=== PATIENT | female | born 1955 | race Caucasian/White ===

== ENCOUNTER → 2016-09-20 | Outpatient (CLI) | payer BC ==
--- NOTE | 2016-09-21 10:40 | NM ---
EXAMINATION TYPE: NM hepatobiliary w EF DATE OF EXAM: 09/20/2016 COMPARISON: NONE HISTORY: Abdominal pain, R 10.84 TECHNIQUE: After the intravenous administration of 4.5 mCi Tc 99m Mebrofenin hepatobiliary scintigrap hy is performed. Immediate images post injection. FINDINGS: There is satisfactory initial accumulation of tracer by the liver. The gallbladder is visualized wit hin 4 minutes. The small bowel activity is noted within 6 minutes. At one hour 8 ounces of oral ens ure plus is given to mimic CCK and gallbladder ejection fraction is calculated at 87 %. Therefore th ere is no scintigraphic evidence of cystic or common bile duct obstruction to suggest acute cholecyst itis. IMPRESSION: Gallbladder ejection fraction is 87%
== END ==
LOC: RADNMMAIN 14:06
PROVIDERS: ATTEND Surgery
DX: R10.84 Generalized abdominal pain (principal)
CPT/HCPCS: 78226; A9537

== ENCOUNTER → 2016-09-20 | Outpatient (CLI) | payer BC ==
[2016-09-20 13:27] VITALS: BP 154/66; PULSE 59; RESP 16; TEMP 98.2; BMI 34.5
--- NOTE | 2016-09-20 16:33 | P.HPBAR ---
Bariatric H&P - History & Physicial H&P Date: 09/20/16 History & Physicial: Visit/CC: band adj Patient initial contact: Initial weight: 91.257 kg Initial weight in pounds: 201.00 Height: 5 ft 4 in Initial BMI: 34.5 Last weight: 196 Current weight: 91.257 kg Current weight in pounds: 201.00 Current BMI: 34.5 [place] body weight (based on NIH guidelines): 54.431 kg Excess body weight loss: 0.0% The patient is a 61 year-old F who presents for Bariatric Assessment. Patient presents today for lab band follow up. Patient states that she's had some problems with some intermittent abdominal pain. She's not requesting adjustment of her band. She feels her band is in good zone. Past Medical History Additional Past Medical History / Comment(s): uveitis, palpitations History of Any Multi-Drug Resistant Organisms: None Reported Past Surgical History: Adenoidectomy, Bariatric Surgery, Bladder Surgery, Hysterectomy, Orthopedic Surgery Additional Past Surgical History / Comment(s): lap band 2011, bilateral carpal tunnel , right hip replacement Past Anesthesia/Blood Transfusion Reactions: No Reported Reaction Smoking Status: Never smoker Surgical - Exam Vital Signs Temp Pulse Resp BP 98.2 F 59 L 16 154/66 09/20/16 13:22 09/20/16 13:22 09/20/16 13:22 09/20/16 13:22 - General well developed, no distress - Eyes PERRL - ENT normal pinna - Cardiovascular Rhythm: regular - Abdomen Mild right upper quadrant tenderness Abdomen: soft Bariatric Assessment & Plan Plan: Abdominal pain. Patient will undergo HIDA scan testing. We will evaluate gallbladder dysfunction. Patient follow-up in one month for her LAP-BAND. Bariatric Checklist Checklist: Plan: Checklist: EGD: 1. Hiatal hernia: 2. H. Pylori: HgbA1c: Vitamin D: Smoking: Never smoker Primary care physician referral: Psychiatry clearance: Cardiology clearance: Sleep study: Diet journal: VTE risk score: VTE risk level: Rehab needs at discharge:
[2016-09-20 16:53] LABS: CH 29.3; CHCM 34.2; HCT 40.8 % (34.0-46.0); HDW 2.92; MCH 29.5 pg (25.0-35.0); MCHC 34.2 g/dL (31.0-37.0); MCV 86.2 fL (80.0-100.0); Mean Platelet Volume 7.6; RBC 4.74 m/uL (3.80-5.40); RDW 13.7 % (11.5-15.5); WBC 8.6 k/uL (3.8-10.6)
[2016-09-20 17:07] LABS: ALT 55 U/L (9-52); AST 46 U/L (14-36); Alkaline Phosphatase 82 U/L (38-126); Anion Gap 12 mmol/L; Blood Urea Nitrogen 10 mg/dL (7-17); Calcium 9.5 mg/dL (8.4-10.2); Carbon Dioxide 26 mmol/L (22-30); Chloride 104 mmol/L (98-107); Glucose 126 mg/dL (74-99); Magnesium 2.1 mg/dL (1.6-2.3); Non-African American GFR(MDRD) >60 (>60 ml/min/1.73 sqM); Potassium 4.4 mmol/L (3.5-5.1); Sodium 142 mmol/L (137-145); Total Bilirubin 0.7 mg/dL (0.2-1.3)
[2016-09-20 17:57] LABS: Vitamin B12 558 pg/mL (239-931)
== END | disposition home or self-care (01) ==
LOC: BARWHC3 13:05
PROVIDERS: ATTEND Surgery
DX: Z48.815 Encounter for surgical aftercare following surgery on the digestive system (principal); R10.9 Unspecified abdominal pain; E66.01 Morbid (severe) obesity due to excess calories; Z68.34 Body mass index [BMI] 34.0-34.9, adult; Z98.84 Bariatric surgery status; E44.0 Moderate protein-calorie malnutrition; E55.9 Vitamin D deficiency, unspecified
CPT/HCPCS: 80053; 82306; 82525; 82607; 83735; 84255; 84425; 84443; 84590; 85027; 99211

== ENCOUNTER 2016-10-15 08:11 | Day surgery (SDC) | payer BC ==
[2016-10-11 09:04] VITALS: BMI 34.1
[~2016-10-15 08:11] MED LIST: DEXAMETHASONE SOD PHOSPHATE 10 MG/ML 1 ML VIAL IV ONE; HEPARIN SODIUM,PORCINE 5,000 UNIT/ML 1 ML VIAL SQ ONE; LACTATED RINGERS 1,000 ML IV SCH; LIDOCAINE 1% 20 ML VIAL (10MG/ML) FOR IV START INTRADERMA PRN; ONDANSETRON 4 MG/2 ML VIAL IVP ONE; SCOPOLAMINE 1.5MG/72HR PATCH TRANSDERM ONE; ceFAZolin 2 GM in SODIUM CHLORIDE 0.9% 100 ML IVPB ONE
[2016-10-15 09:46] LABS: Glucose,Whole Blood 105 mg/dL (75-99)
--- NOTE | 2016-10-15 09:54 | P.GSHP ---
History of Present Illness H&P Date: 10/15/16 Chief Complaint: Right upper quadrant pain This a 61-year-old female who presents today for laparoscopically stenting. Her recent HIDA scan shows abnormal ejection fraction consistent with chronic cholecystitis. Past Medical History Past Medical History: Sleep Apnea/CPAP/BIPAP Additional Past Medical History / Comment(s): recent tx UTI, abdominal discomfort, Hx uveitis-follows at [facility], palpitations,UTIs,uses cpap,varicose veins,hypoglycemia,arthritis,has elevated liver enzymes-stated related to methotrexate last taken approx 1 mos ago. History of Any Multi-Drug Resistant Organisms: None Reported Past Surgical History: Adenoidectomy, Bariatric Surgery, Bladder Surgery, Hysterectomy, Joint Replacement, Orthopedic Surgery Additional Past Surgical History / Comment(s): lap band 2010-thinks 10ml fluid present, bilateral carpal tunnel , right hip replacement Past Anesthesia/Blood Transfusion Reactions: Previous Problems w/ Anesthesia, Family History of Problems w/ Anesthesia Additional Past Anesthesia/Blood Transfusion Reaction / Comment(s): takes a long time to wake up with anesthesia,mother takes a long time waking up with anesthesia. No problems with prior blood transfusion. Smoking Status: Never smoker - Past Family History Mother Family Medical History: Diabetes Mellitus, Hypertension Additional Family Medical History / Comment(s): heart disease,valve replacement Father Family Medical History: Diabetes Mellitus, Liver Disease Additional Family Medical History / Comment(s): heart disease Medications and Allergies Home Medications Medication Instructions Recorded Confirmed Type Calcium Citrate 2 tab PO DAILY 09/17/16 10/15/16 History DULoxetine HCL [Cymbalta] 30 mg PO QAM 09/17/16 10/15/16 History Metoprolol Succinate [Toprol XL] 25 mg PO HS 09/17/16 10/15/16 History Multivitamin [Multivitamins Adult 1 tab PO DAILY 09/17/16 10/15/16 History Gummies] Timolol [Betimol 0.5% Ophth Soln] 1 drop BOTH EYES QAM 09/17/16 10/15/16 History Nitrofurantoin Monohyd/M-Cryst 100 mg PO BID 10/15/16 10/15/16 History [Macrobid] Allergies Allergy/AdvReac Type Severity Reaction Status Date / Time Penicillins Allergy Rash/Hives Verified 10/15/16 09:09 Sulfa (Sulfonamide Allergy Rash/Hives Verified 10/15/16 09:09 Antibiotics) Surgical - Exam Vital Signs Temp Pulse Resp Pulse Ox 97.6 F 64 16 99 10/15/16 09:08 10/15/16 09:08 10/15/16 09:08 10/15/16 09:08 - General well developed, no distress - Eyes PERRL - ENT normal pinna - Neck no masses - Respiratory normal expansion - Cardiovascular Rhythm: regular - Abdomen Abdomen: soft, non tender Results - Labs Abnormal Lab Results - Last 24 Hours (Table) 10/15/16 Range/Units 09:38 POC Glucose (mg/dL) 105 H (75-99) mg/dL Assessment and Plan Plan: Chronic cholecystitis. We'll perform laparoscopic cholecystectomy.
[2016-10-15] MEDS ORDERED: ePHEDrine SULFATE/0.9% NACL/PF 50 MG/5 ML SYRINGE IV ONE (10:07)
[2016-10-15] MEDS ORDERED: HYDROmorphone (PF) 1 MG/ML ONE (10:07)
[2016-10-15] MEDS ORDERED: MIDAZOLAM 2 MG/2 ML VIAL ONE (10:07)
[2016-10-15] MEDS ORDERED: PROPOFOL 10 MG/ML 20 ML VIAL IV ONE (10:07)
[2016-10-15] MEDS ORDERED: fentaNYL (PF) 50 MCG/ML 2 ML AMP ONE (10:07)
[2016-10-15] MEDS ORDERED: NEOSTIGMINE 1 MG/ML 10 ML VIAL ONE (10:07)
[2016-10-15] MEDS ORDERED: GLYCOPYRROLATE 0.2 MG/ML 2 ML VIAL ONE (10:07)
[2016-10-15] MEDS ORDERED: LIDOCAINE 1% INJ 10MG/ML (20 ML MDV) ONE (10:07)
[2016-10-15] MEDS ORDERED: ePHEDrine 50 MG/ML 1 ML AMP ONE (10:07)
[2016-10-15] MEDS ORDERED: SUCCINYLCHOLINE CHLORIDE 100 MG/5 ML SYR IV ONE (10:07)
[2016-10-15] MEDS ORDERED: ROCURONIUM BROMIDE 10 MG/ML 10 ML VIAL IV ONE (10:07)
[2016-10-15] MEDS ORDERED: LIDOCAINE 2%-EPI 1:100,000 20 ML VIAL SQ ONE (10:25)
[2016-10-15] MEDS ORDERED: BUPIVACAINE (PF) 0.25% 30 ML VIAL SQ ONE (10:25)
--- NOTE | 2016-10-15 11:07 | P.OP ---
Date of Procedure: 10/15/16 Preoperative Diagnosis: Cholecystitis Postoperative Diagnosis: Cholecystitis Procedure(s) Performed: Laparoscopic cholecystectomy Implants: Anesthesia: PETAR Surgeon: Joseph Vital Estimated Blood Loss (ml): 10 Pathology: other (Gallbladder) Condition: stable Disposition: PACU Indications for Procedure: Operative Findings: Description of Procedure: The patient was placed on the operating table. The patient received a general endotracheal tube anesthesia. The patients abdomen was prepped and draped in the usual sterile fashion. Through an infraumbilical stab incision, the fascia of the anterior abdominal wall was grasped with a pair of Kochers and then the Veress needle was placed in the peritoneal cavity. Position of the Veress needle was confirmed with positive drop test. The abdomen was then insufflated. After adequate insufflation, the 10 mm trocar was placed in the peritoneal cavity. Following this the laparoscope was placed in the peritoneal cavity. The patient was placed in the head-up, right side up position and then a 5 mm trocar was placed in the right lateral and right subcostal position under direct visualization. A 8 mm trocar was placed in the epigastric position. The gallbladder was grasped in the fundus and infundibulum. Traction on the gallbladder was placed in the lateral and the cephalad positions. The triangle of Calot was visualized.. The cystic duct was bluntly dissected until the union of the cystic duct and common bile duct was seen. The cystic duct was then divided and sealed with the Harmonic scissors. A PDS Endoloop was then placed throughout the cystic duct stump. The cystic artery divided and sealed with the Harmonic scissors. The gallbladder was then removed from the liver bed using Harmonic scissors. The gallbladder was then extracted through the epigastric port site. Operative field was checked for any bleeding spots and Harmonic scissors was used to coagulate the liver bed. The abdomen was irrigated. The trocars were removed. The skin was closed using interrupted 3-0 Vicryl suture. Dermabond dressing were applied. The patient tolerated the procedure well.
[2016-10-15 11:23] VITALS: TEMP 97.2
[2016-10-15] MEDS: HYDROmorphone 1 MG/ML 1 ML SYRINGE IVP PRN ×2 (11:47→12:04)
[2016-10-15] MEDS ORDERED: KETOROLAC 30 MG/ML 1 ML VIAL IVP ONE (11:52)
[2016-10-15 12:23] VITALS: RESP 16
[2016-10-15 14:25] VITALS: BP 135/60; PULSE 82
[2016-10-15] MEDS ORDERED: LACTATED RINGERS 1,000 ML IV ONE (15:24)
== END 2016-10-15 17:05 | disposition home or self-care (01) ==
LOC: OR 08:11
PROVIDERS: ATTEND Surgery
DX: K81.1 Chronic cholecystitis (principal); Z98.84 Bariatric surgery status; G47.33 Obstructive sleep apnea (adult) (pediatric); Z99.89 Dependence on other enabling machines and devices; H40.9 Unspecified glaucoma; Z79.2 Long term (current) use of antibiotics; Z79.899 Other long term (current) drug therapy; Z09 Encounter for follow-up examination after completed treatment for conditions other than malignant neoplasm; Z88.0 Allergy status to penicillin; Z88.2 Allergy status to sulfonamides
CPT/HCPCS: 88304; 47562; J2250; J1644; J1100; J2710; J0690; J2405; J2001; J3010; J1885; J1170; J0330; J2704

== ENCOUNTER 2016-10-24 05:53 | Inpatient (IN) | payer BC ==
[2016-10-24] MEDS ORDERED: SODIUM CHLORIDE 0.9% 1,000 ML IV STA (06:14)
[2016-10-24] MEDS ORDERED: ONDANSETRON 4 MG/2 ML VIAL IVP PRN (06:32)
[2016-10-24] MEDS ORDERED: NALOXONE 0.4 MG/ML 1 ML VIAL IV PRN ×2 (06:32→13:56)
--- NOTE | 2016-10-24 06:38 | ED ---
Abdominal Pain HPI - General Chief Complaint: Abdominal Pain Stated Complaint: Post Op Complication Time Seen by Provider: 10/24/16 05:58 Source: patient, EMS Mode of arrival: EMS Limitations: no limitations - History of Present Illness Initial Comments: This patient is a 61-year-old woman who is transferred here from [facility]. She had gone there tonight to be evaluated for abdominal pain. The patient had laparoscopic cholecystectomy performed here 10/15/2016, Dr. Vital, for chronic cholecystitis. The patient states that she has had some mild to moderate abdominal pain since the surgery but that this worsened over the course of the last evening, becoming severe. She indicates all across the upper part of the abdomen. She describes the pain as constant, a bloating sensation, and states that it was severe but is somewhat milder after she received analgesic medicine at the other hospital. The patient also had a computed tomography scan there that did show some intra-abdominal fluid with a consideration of nonspecific ascites or possible bile leak, though most of the fluid is not in the gallbladder fossa. The patient was transferred here. In addition the patient has not had much of a bowel movement since she left the hospital. She denies any change in urination. MD Complaint: abdominal pain -: days(s) Location: LUQ, RUQ, epigastric Radiation: none Migration to: no migration Severity: severe Quality: cramping, fullness Consistency: constant Improves With: nothing Worsens With: nothing Associated Symptoms: nausea, constipation - Related Data Home Medications Medication Instructions Recorded Confirmed Calcium Citrate 2 tab PO DAILY 09/17/16 10/24/16 DULoxetine HCL [Cymbalta] 30 mg PO QAM 09/17/16 10/24/16 Metoprolol Succinate [Toprol XL] 25 mg PO HS 09/17/16 10/24/16 Multivitamin [Multivitamins Adult 1 tab PO DAILY 09/17/16 10/24/16 Gummies] Timolol [Betimol 0.5% Ophth Soln] 1 drop BOTH EYES [facility] 09/17/16 10/24/16 Nitrofurantoin Monohyd/M-Cryst 100 mg PO BID 10/15/16 10/24/16 [Macrobid] Previous Rx's Medication Instructions Recorded Docusate [Colace] 100 mg PO BID #20 capsule 10/15/16 HYDROcodone/APAP 7.5-325MG [[place] 1 each PO Q4H PRN #60 tab 10/15/16 7.5] Allergies Allergy/AdvReac Type Severity Reaction Status Date / Time Penicillins Allergy Rash/Hives Verified 10/24/16 06:01 Sulfa (Sulfonamide Allergy Rash/Hives Verified 10/24/16 06:01 Antibiotics) Review of Systems ROS Statement: Those systems with pertinent positive or pertinent negative responses have been documented in the HPI. ROS Other: All systems not noted in ROS Statement are negative. Constitutional: Denies: fever, chills Respiratory: Denies: cough, dyspnea Cardiovascular: Denies: chest pain, palpitations, orthopnea, edema, syncope Gastrointestinal: Reports: abdominal pain, nausea, constipation. Denies: vomiting, diarrhea, melena, hematochezia Genitourinary: Denies: dysuria, hematuria Musculoskeletal: Denies: back pain Skin: Denies: rash Neurological: Denies: headache, weakness, numbness Past Medical History Past Medical History: Sleep Apnea/CPAP/BIPAP Additional Past Medical History / Comment(s): recent tx UTI, abdominal discomfort, Hx uveitis-follows at [facility], palpitations,UTIs,uses cpap,varicose veins,hypoglycemia,arthritis,has elevated liver enzymes-stated related to methotrexate last taken approx 1 mos ago. History of Any Multi-Drug Resistant Organisms: None Reported Past Surgical History: Adenoidectomy, Bariatric Surgery, Bladder Surgery, Cholecystectomy, Hysterectomy, Joint Replacement, Orthopedic Surgery Additional Past Surgical History / Comment(s): lap band 2010-thinks 10ml fluid present, bilateral carpal tunnel , right hip replacement Past Anesthesia/Blood Transfusion Reactions: Previous Problems w/ Anesthesia, Family History of Problems w/ Anesthesia Additional Past Anesthesia/Blood Transfusion Reaction / Comment(s): takes a long time to wake up with anesthesia,mother takes a long time waking up with anesthesia. No problems with prior blood transfusion. Past Psychological History: Depression Smoking Status: Never smoker - Past Family History Mother Family Medical History: Diabetes Mellitus, Hypertension Additional Family Medical History / Comment(s): heart disease,valve replacement Father Family Medical History: Diabetes Mellitus, Liver Disease Additional Family Medical History / Comment(s): heart disease General Exam Limitations: no limitations General appearance: alert, in no apparent distress, obese Head exam: Present: atraumatic, normocephalic Eye exam: Present: normal appearance, PERRL, EOMI. Absent: scleral icterus, conjunctival injection ENT exam: Present: mucous membranes dry Neck exam: Present: normal inspection Respiratory exam: Present: normal lung sounds bilaterally. Absent: respiratory distress, wheezes, rales, rhonchi, stridor Cardiovascular Exam: Present: regular rate, normal rhythm, normal heart sounds. Absent: systolic murmur, diastolic murmur, rubs, gallop GI/Abdominal exam: Present: distended, tenderness (There is mild to moderate tenderness across the upper abdomen bilaterally without rebound), guarding, diminished bowel sounds. Absent: rebound, rigid, organomegaly, mass, pulsatile mass Extremities exam: Present: normal inspection, normal capillary refill. Absent: pedal edema, calf tenderness Back exam: Absent: CVA tenderness (R), CVA tenderness (L) Neurological exam: Present: alert Skin exam: Present: warm, dry, intact, normal color. Absent: rash Course Vital Signs 10/24/16 05:55 Temperature 98.4 F Pulse Rate 96 Respiratory 18 Rate Blood Pressure 144/65 O2 Sat by Pulse 96 Oximetry Medical Decision Making - Medical Decision Making This patient is a 61-year-old woman transferred from the other hospital where she had gone for abdominal pain. The accompanying documents were reviewed and I discussed the case with Dr. Vital. He requested the patient be admitted, have a HIDA scan performed stat this morning and he will see the patient shortly. Disposition Clinical Impression: Abdominal pain, Leukocytosis Disposition: ADMITTED IP TO THIS [facility] Condition: Fair Referrals: Nonstaff,Physician [REFERRING] - 1-2 days
[2016-10-24] MEDS ORDERED: SODIUM CHLORIDE 0.9% 1,000 ML IV SCH (06:45)
[2016-10-24] MEDS: HYDROmorphone 1 MG/ML 1 ML SYRINGE IV PRN ×5 (06:52→22:52)
--- NOTE | 2016-10-24 09:38 | NM ---
EXAMINATION TYPE: NM hepatobiliary wo EF DATE OF EXAM: 10/24/2016 COMPARISON: Correlation outside CT same day HISTORY: 61 year-old female abdominal pain and bloating status post cholecystectomy on 10/15/2016. TECHNIQUE: After the intravenous administration of 5.5 mCi Tc 99m Mebrofenin hepatobiliary scintigrap hy is performed. Immediate images post injection. FINDINGS: There is satisfactory uptake of tracer within the liver. Accumulation of activity is noted in the reg ion of the gallbladder fossa at 10 minutes. There is progressive accumulation in the region of the ga llbladder fossa and then activity tracking down the right side of the abdomen and then towards the mi dline likely collecting within the pelvis. Imaging performed for 1 hour. IMPRESSION: Exam positive for bile leak at the level of the gallbladder fossa. Leaking bile tracks down to collec t in the pelvis. Findings discussed with Dr. Vital at the workstation at 9:30 AM.
--- NOTE | 2016-10-24 10:20 | P.GSHP ---
History of Present Illness H&P Date: 10/24/16 Chief Complaint: abdominal pain This is a 61-year-old female who underwent laparoscopic cholecystectomy on October 15. Patient states that she developed abdominal pain several days ago. She thought the pain was postoperative pain. The pain worsened and she presented to [facility] last night. She had a CAT scan performed which shows a large fluid collection in the pelvis. The patient was admitted through the emergency room and I ordered a HIDA scan which shows evidence of a bile leak. - Constitutional Constitutional: Reports as per HPI Past Medical History Past Medical History: Sleep Apnea/CPAP/BIPAP Additional Past Medical History / Comment(s): recent tx UTI, abdominal discomfort, Hx uveitis-follows at [facility], palpitations,UTIs,uses cpap,varicose veins,hypoglycemia,arthritis,has elevated liver enzymes-stated related to methotrexate last taken approx 1 mos ago. History of Any Multi-Drug Resistant Organisms: None Reported Past Surgical History: Adenoidectomy, Bariatric Surgery, Bladder Surgery, Cholecystectomy, Hysterectomy, Joint Replacement, Orthopedic Surgery Additional Past Surgical History / Comment(s): lap band 2010-thinks 10ml fluid present, bilateral carpal tunnel , right hip replacement Past Anesthesia/Blood Transfusion Reactions: Previous Problems w/ Anesthesia, Family History of Problems w/ Anesthesia Additional Past Anesthesia/Blood Transfusion Reaction / Comment(s): takes a long time to wake up with anesthesia,mother takes a long time waking up with anesthesia. No problems with prior blood transfusion. Past Psychological History: Depression Smoking Status: Never smoker - Past Family History Mother Family Medical History: Diabetes Mellitus, Hypertension Additional Family Medical History / Comment(s): heart disease,valve replacement Father Family Medical History: Diabetes Mellitus, Liver Disease Additional Family Medical History / Comment(s): heart disease Medications and Allergies Home Medications Medication Instructions Recorded Confirmed Type Calcium Citrate 2 tab PO DAILY 09/17/16 10/24/16 History DULoxetine HCL [Cymbalta] 30 mg PO DAILY 09/17/16 10/24/16 History Metoprolol Succinate [Toprol XL] 25 mg PO HS 09/17/16 10/24/16 History Multivitamin [Multivitamins Adult 1 tab PO DAILY 09/17/16 10/24/16 History Gummies] Timolol [Betimol 0.5% Ophth Soln] 1 drop BOTH EYES QAM 09/17/16 10/24/16 History Acetaminophen [Tylenol] 650 mg PO Q8H PRN 10/24/16 10/24/16 History HYDROcodone/APAP 7.5-325MG [[place] 1 tab PO Q4H PRN 10/24/16 10/24/16 History 7.5] Allergies Allergy/AdvReac Type Severity Reaction Status Date / Time Penicillins Allergy Rash/Hives Verified 10/24/16 07:44 Sulfa (Sulfonamide Allergy Rash/Hives Verified 10/24/16 07:44 Antibiotics) Surgical - Exam Vital Signs Temp Pulse Resp BP Pulse Ox 98.4 F 96 18 144/65 96 10/24/16 05:55 10/24/16 05:55 10/24/16 05:55 10/24/16 05:55 10/24/16 05:55 - General well developed, no distress - Eyes PERRL - ENT normal pinna - Neck no masses - Respiratory normal expansion - Cardiovascular Rhythm: regular - Abdomen Mild diffuse tenderness. There is no rebound or guarding. Sites are clean dry and intact. Abdomen: soft Results - Imaging Additional studies: HIDA scan was reviewed with the radiologist. There is evidence of a bile leak with fluid accumulation in the pelvis. Assessment and Plan Plan: Status post laparoscopic cholecystectomy 9 days ago. The patient has a bile leak. I discussed the patient that we will plan on diagnostic laparoscopy with possible drain placement and evacuation of bile. I discussed with her the potential risk of bile duct injury, cystic duct stump leak as well as ductal Luschka leak or accessory bile duct leak. The patient will undergo diagnostic laparoscopy with drain placement today and washout of bile. GI will be consult for ERCP to evaluate the source of her bile leak as well as possible stent placement.
[2016-10-24 10:22] VITALS: BMI 33.9
[2016-10-24] MEDS: FAMOTIDINE 20 MG/2 ML VIAL IV SCH ×2 (10:42→20:31)
[2016-10-24] MEDS: LACTATED RINGERS 1,000 ML IV SCH ×7 (10:46→16:57)
[2016-10-24] MEDS: LEVOFLOXACIN 750MG-D5W PMX 750 MG in DEXTROSE/WATER 1 150ML.BAG IVPB SCH (10:47)
[2016-10-24 10:58] LABS: Basophils # (A) 0.1 k/uL (0-0.2); Basophils % (A) 1 %; CH 28.2; CHCM 32.2; Eosinophils # (A) 0.5 k/uL (0-0.7); Eosinophils % (A) 3 %; HCT 42.7 % (34.0-46.0); HGB 14.2 gm/dL (11.4-16.0); Luc # (Auto) 0.29; Luc % (Auto) 2; Lymphocytes # (A) 0.7 k/uL (1.0-4.8); Lymphocytes % (A) 4 %; MCH 29.2 pg (25.0-35.0); MCHC 33.2 g/dL (31.0-37.0); Mean Platelet Volume 7.5; Monocytes # (A) 1.7 k/uL (0-1.0); Monocytes % (A) 9 %; Neutrophils # (A) 15.8 k/uL (1.3-7.7); Neutrophils % (A) 82 %; RBC 4.85 m/uL (3.80-5.40); RDW 12.9 % (11.5-15.5); WBC 19.2 k/uL (3.8-10.6); WBC (Perox) 20.15
[2016-10-24 11:14] LABS: ALT 34 U/L (9-52); AST 24 U/L (14-36); Alkaline Phosphatase 107 U/L (38-126); Anion Gap 8 mmol/L; Blood Urea Nitrogen 23 mg/dL (7-17); Calcium 7.6 mg/dL (8.4-10.2); Carbon Dioxide 26 mmol/L (22-30); Chloride 97 mmol/L (98-107); Glucose 109 mg/dL (74-99); Non-African American GFR(MDRD) >60 (>60 ml/min/1.73 sqM); Potassium 4.6 mmol/L (3.5-5.1); Sodium 131 mmol/L (137-145); Total Bilirubin 1.8 mg/dL (0.2-1.3); Total Protein 4.8 g/dL (6.3-8.2)
[2016-10-24] MEDS ORDERED: IV FLUID CONTINUATION 1,000 ML IV ONE (11:33)
[2016-10-24] MEDS ORDERED: MIDAZOLAM 2 MG/2 ML VIAL ONE (12:18)
[2016-10-24] MEDS ORDERED: SUCCINYLCHOLINE CHLORIDE 100 MG/5 ML SYR IV ONE (12:18)
[2016-10-24] MEDS ORDERED: ROCURONIUM BROMIDE 10 MG/ML 10 ML VIAL IV ONE (12:18)
[2016-10-24] MEDS ORDERED: GLYCOPYRROLATE 0.2 MG/ML 2 ML VIAL ONE (12:18)
[2016-10-24] MEDS ORDERED: LIDOCAINE 1% INJ 10MG/ML (20 ML MDV) ONE (12:18)
[2016-10-24] MEDS ORDERED: PROPOFOL 10 MG/ML 20 ML VIAL IV ONE (12:18)
[2016-10-24] MEDS ORDERED: NEOSTIGMINE 1 MG/ML 10 ML VIAL ONE (12:18)
[2016-10-24] MEDS ORDERED: fentaNYL (PF) 50 MCG/ML 2 ML AMP ONE (12:18)
[2016-10-24] MEDS ORDERED: BUPIVACAIN-EPI 0.5%-1:200,000 30 ML VIAL SQ ONE (12:36)
[2016-10-24] MEDS ORDERED: LACTATED RINGERS 1,000 ML IV ONE ×3 (13:07→14:47)
--- NOTE | 2016-10-24 14:05 | P.OP ---
Date of Procedure: 10/24/16 Preoperative Diagnosis: Biloma Postoperative Diagnosis: Biloma Procedure(s) Performed: Diagnostic laparoscopy Exploratory laparotomy Evacuation of biloma with drain placement Implants: Anesthesia: PETAR Surgeon: Joseph Vital Estimated Blood Loss (ml): 50 Pathology: none sent Condition: stable Disposition: PACU Indications for Procedure: Operative Findings: Description of Procedure: The patient's placed on the operating table in the supine position. She received general anesthesia. Her abdomen was prepped and draped usual sterile fashion. The patient a previous trocar site in the left upper quadrant. The skin was incised at the incision site and then using a optical trocar under direct visualization the peritoneal cavity was entered. There appeared to be adhered peritoneal fat at the trocar site there is no good visualization. At this point a skin incision was made at the umbilicus and then using another optical trocar under direct visitation the peritoneal cavity was entered. Once again there was omental fat stuck to the abdominal wall which prevented visualization panel cavity. At this point incision was made at the midline. Local area and then the pleural cavity is entered under direct visualization. There was a large amount of bilious fluid in the pleural cavity. This was aspirated. The incision was extended cephalad. In the lateral trocar was visualized. The lateral trocar was To the transverse colon in some peritoneal fat. There is no evidence of any injury to the colon. There appeared to be a small serosal tear and this was secured with 3-0 GI silk suture. At the area umbilicus there was no evidence of any injury to the small bowel. There was a large amount of bilious fluid. This was aspirated there was over 2200 mL of bilious fluid aspirated. At this point the liver bed was examined. There was significant inflammatory changes around the liver bed there was no obvious bile leak seen. The PDS Endoloop was seen on the cystic duct stump. No leak was visualized. At this point the abdomen was further irrigated. 6 L of normal saline were used to irrigate the abdomen. A DAI drain was placed into the gallbladder fossa and brought out through the right upper quadrant. Another DAI drain was placed in the pelvis and brought out through the left lower abdominal wall. Once again the bowel was examined and there is no evidence of any injury to the bowel. The fascia was closed with looped #1 PDS suture. The skin was closed mary anne. The patient was sent to recovery room in stable condition.
[2016-10-24] MEDS: HYDROmorphone 1 MG/ML 1 ML SYRINGE IVP ONE ×6 (14:17→15:04)
[2016-10-24] MEDS ORDERED: ONDANSETRON 4 MG/2 ML VIAL IVP ONE (14:27)
[2016-10-24] MEDS: metroNIDAZOLE-NS PMX 500 MG in SALINE 1 100ML.BAG IVPB SCH ×2 (15:45→23:37)
[2016-10-24] MEDS: LACTATED RINGERS 1,000 ML IV ONE ×2 (15:47→18:03)
--- NOTE | 2016-10-24 16:08 | P.CONS ---
History of Present Illness - Reason for Consult sepsis, leukocytosis - History of Present Illness 61-year-old female admitted post expiratory laparotomy. Patient at week ago had a cholecystectomy. Patient's the had continued abdominal pain because of which she came back to the hospital. Patient underwent x-ray laparotomy and 2.2 L of bilious fluid was removed and patient probably has sepsis from that. Patient does have leukocytosis. Patient is ALLERGIC to penicillin and patient is presently on 1 25 mL of lactated Ringer's along with metronidazole and levofloxacin which are appropriate antibiotics for intra-abdominal sepsis. Patient is still having a lot of anesthesia denied any symptoms at this point of time although patient is still under influence of anesthesia Review of Systems REVIEW OF SYSTEMS: CONSTITUTIONAL: No fever, no malaise, no fatigue. HEENT: No recent visual problems or hearing problems. Denied any sore throat. CARDIOVASCULAR: No chest pain, orthopnea, PND, no palpitations, no syncope. PULMONARY: No shortness of breath, no cough, no hemoptysis. GASTROINTESTINAL: Abdominal pain NEUROLOGICAL: No headaches, no weakness, no numbness. HEMATOLOGICAL: Denies any bleeding or petechiae. GENITOURINARY: Denies any burning micturition, frequency, or urgency. MUSCULOSKELETAL/RHEUMATOLOGICAL: Denies any joint pain, swelling, or any muscle pain. ENDOCRINE: Denies any polyuria or polydipsia. The rest of the 14-point review of systems is negative. Past Medical History Past Medical History: Sleep Apnea/CPAP/BIPAP Additional Past Medical History / Comment(s): recent tx UTI, abdominal discomfort, Hx uveitis-follows at [facility], palpitations,UTIs,uses cpap,varicose veins,hypoglycemia,arthritis,has elevated liver enzymes-stated related to methotrexate last taken approx 1 mos ago. History of Any Multi-Drug Resistant Organisms: None Reported Past Surgical History: Adenoidectomy, Bariatric Surgery, Bladder Surgery, Cholecystectomy, Hysterectomy, Joint Replacement, Orthopedic Surgery Additional Past Surgical History / Comment(s): lap band 2010-thinks 10ml fluid present, bilateral carpal tunnel , right hip replacement Past Anesthesia/Blood Transfusion Reactions: Previous Problems w/ Anesthesia, Family History of Problems w/ Anesthesia Additional Past Anesthesia/Blood Transfusion Reaction / Comm: takes a long time to wake up with anesthesia,mother takes a long time waking up with anesthesia. No problems with prior blood transfusion. Past Psychological History: Depression Smoking Status: Never smoker - Past Family History Mother Family Medical History: Diabetes Mellitus, Hypertension Additional Family Medical History / Comment(s): heart disease,valve replacement Father Family Medical History: Diabetes Mellitus, Liver Disease Additional Family Medical History / Comment(s): heart disease Medications and Allergies Home Medications Medication Instructions Recorded Confirmed Type Calcium Citrate 2 tab PO DAILY 09/17/16 10/24/16 History DULoxetine HCL [Cymbalta] 30 mg PO DAILY 09/17/16 10/24/16 History Metoprolol Succinate [Toprol XL] 25 mg PO HS 09/17/16 10/24/16 History Multivitamin [Multivitamins Adult 1 tab PO DAILY 09/17/16 10/24/16 History Gummies] Timolol [Betimol 0.5% Ophth Soln] 1 drop BOTH EYES QAM 09/17/16 10/24/16 History Acetaminophen [Tylenol] 650 mg PO Q8H PRN 10/24/16 10/24/16 History HYDROcodone/APAP 7.5-325MG [[place] 1 tab PO Q4H PRN 10/24/16 10/24/16 History 7.5] Allergies Allergy/AdvReac Type Severity Reaction Status Date / Time Penicillins Allergy Rash/Hives Verified 10/24/16 07:44 Sulfa (Sulfonamide Allergy Rash/Hives Verified 10/24/16 07:44 Antibiotics) Physical Exam Vitals: Vital Signs Temp Pulse Pulse Pulse Resp BP BP 10/24/16 15:00 98 16 139/55 10/24/16 14:45 93 16 138/65 10/24/16 14:30 91 16 138/63 10/24/16 14:15 90 16 128/58 10/24/16 14:01 98.0 F 100 16 144/65 10/24/16 07:46 98.9 F 98 20 133/62 10/24/16 07:45 98 F 103 H 16 135/63 10/24/16 06:53 96 20 130/59 10/24/16 05:55 98.4 F 96 18 144/65 Pulse Ox 10/24/16 15:00 99 10/24/16 14:45 100 10/24/16 14:30 100 10/24/16 14:15 100 10/24/16 14:01 100 10/24/16 07:46 92 L 08/13/17 07:45 94 L 10/24/16 06:53 95 10/24/16 05:55 96 Intake and Output 10/24/16 10/24/16 10/24/16 06:59 14:59 22:59 Intake Total 1550 50 Output Total 110 Balance 1440 50 Intake: IV 1550 50 Output: Estimated Blood Loss 110 Other: Voiding Method Toilet Weight 90.265 kg 89.584 kg Patient Weight 10/25/16 06:59 Weight 89.584 kg PHYSICAL EXAMINATION: GENERAL: The patient is alert and oriented x3, not in any acute distress. Well developed, well nourished. HEENT: Pupils are round and equally reacting to light. EOMI. No scleral icterus. No conjunctival pallor. Normocephalic, atraumatic. No pharyngeal erythema. No thyromegaly. CARDIOVASCULAR: S1 and S2 present. No murmurs, rubs, or gallops. PULMONARY: Chest is clear to auscultation, no wheezing or crackles. ABDOMEN: Patient has a biliary drain, abdomen is will be distended, sluggish bowel sounds. MUSCULOSKELETAL: No joint swelling or deformity. EXTREMITIES: No cyanosis, clubbing, or pedal edema. NEUROLOGICAL: Gross neurological examination did not reveal any focal deficits. SKIN: No rashes. Results CBC & Chem 7: 10/24/16 10:23 10/24/16 10:23 Labs: Abnormal Lab Results - Last 24 Hours (Table) 10/24/16 10/24/16 Range/Units 10:23 10:23 WBC 19.2 H (3.8-10.6) k/uL Neutrophils # 15.8 H (1.3-7.7) k/uL Lymphocytes # 0.7 L (1.0-4.8) k/uL Monocytes # 1.7 H (0-1.0) k/uL Sodium 131 L (137-145) mmol/L Chloride 97 L (98-107) mmol/L BUN 23 H (7-17) mg/dL Glucose 109 H (74-99) mg/dL Calcium 7.6 L (8.4-10.2) mg/dL Total Bilirubin 1.8 H (0.2-1.3) mg/dL Total Protein 4.8 L (6.3-8.2) g/dL Albumin 2.4 L (3.5-5.0) g/dL Assessment and Plan Plan: 1 sepsis: Secondary to biliary leak patient is on appropriate antibiotics metronidazole and boxes seen. Patient is ALLERGIC to penicillins. Patient is on IV fluids at 1 25 mL per hour. #2 hyponatremia: Hypervolemic hyponatremia expected to improve with IV fluids. 3 sleep apnea patient does use CPAP machine at home which will be continued. #4 status post laparotomy: Pain management and DVT prophylaxis per primary service
[2016-10-24] MEDS: METOPROLOL SUCCINATE (ER) 25 MG TAB.ER.24H PO SCH (20:31)
[2016-10-24] MEDS: DOCUSATE 100 MG CAP PO SCH (23:00)
[2016-10-25] MEDS: HYDROmorphone 1 MG/ML 1 ML SYRINGE IV PRN ×7 (01:01→23:23)
[2016-10-25] MEDS: metroNIDAZOLE-NS PMX 500 MG in SALINE 1 100ML.BAG IVPB SCH ×3 (08:03→23:20)
[2016-10-25] MEDS: DOCUSATE 100 MG CAP PO SCH ×2 (08:05→20:19)
[2016-10-25] MEDS: ENOXAPARIN 40 MG/0.4 ML SYRINGE SQ SCH (08:06)
[2016-10-25] MEDS: DULoxetine HCL 30 MG CAPSULE.DR PO SCH (08:06)
[2016-10-25] MEDS: FAMOTIDINE 20 MG/2 ML VIAL IV SCH ×2 (08:07→20:19)
[2016-10-25 08:08] LABS: Basophils # (A) 0.1 k/uL (0-0.2); Basophils % (A) 1 %; CH 28.8; CHCM 32.1; Eosinophils # (A) 0.1 k/uL (0-0.7); Eosinophils % (A) 1 %; HCT 40.4 % (34.0-46.0); HDW 2.62; HGB 12.5 gm/dL (11.4-16.0); Luc # (Auto) 0.31; Luc % (Auto) 2; Lymphocytes # (A) 0.8 k/uL (1.0-4.8); Lymphocytes % (A) 4 %; MCH 27.9 pg (25.0-35.0); MCHC 30.9 g/dL (31.0-37.0); Monocytes # (A) 2.3 k/uL (0-1.0); Monocytes % (A) 11 %; Neutrophils # (A) 16.8 k/uL (1.3-7.7); Neutrophils % (A) 82 %; RBC 4.48 m/uL (3.80-5.40); RDW 13.4 % (11.5-15.5); WBC 20.5 k/uL (3.8-10.6); WBC (Perox) 19.93
[2016-10-25 08:32] LABS: ALT 38 U/L (9-52); AST 36 U/L (14-36); Alkaline Phosphatase 94 U/L (38-126); Anion Gap 9 mmol/L; Blood Urea Nitrogen 18 mg/dL (7-17); Calcium 7.8 mg/dL (8.4-10.2); Carbon Dioxide 25 mmol/L (22-30); Chloride 101 mmol/L (98-107); Glucose 112 mg/dL (74-99); Non-African American GFR(MDRD) >60 (>60 ml/min/1.73 sqM); Potassium 4.8 mmol/L (3.5-5.1); Sodium 135 mmol/L (137-145); Total Bilirubin 1.4 mg/dL (0.2-1.3); Total Protein 4.1 g/dL (6.3-8.2)
[2016-10-25 09:10] LABS: Manual Review Performed
[2016-10-25] MEDS: LEVOFLOXACIN 750MG-D5W PMX 750 MG in DEXTROSE/WATER 1 150ML.BAG IVPB SCH (10:21)
[2016-10-25] MEDS: TIMOLOL 0.5% OPHTH DROPS 5 ML BTL BOTH EYES SCH (10:21)
[2016-10-25] MEDS ORDERED: INDOMETHACIN 50MG SUPPOSITORY RECTAL ONE (10:59)
[2016-10-25] MEDS: cefTRIAXone 2,000 MG in SODIUM CHLORIDE 0.9% 100 ML IVPB SCH (11:56)
[2016-10-25] MEDS ORDERED: IV FLUID CONTINUATION 250 ML IV ONE (15:09)
[2016-10-25] MEDS ORDERED: PROPOFOL 10 MG/ML 20 ML VIAL IV ONE (15:13)
[2016-10-25] MEDS ORDERED: LIDOCAINE 1% INJ 10MG/ML (20 ML MDV) ONE (15:13)
[2016-10-25] MEDS ORDERED: MIDAZOLAM 2 MG/2 ML VIAL ONE (15:13)
[2016-10-25] MEDS ORDERED: fentaNYL (PF) 50 MCG/ML 2 ML AMP ONE (15:13)
[2016-10-25] MEDS ORDERED: IOHEXOL 300 MG/ML 50 ML BOTTLE MISCELLANE ONE (15:30)
[2016-10-25] MEDS ORDERED: LACTATED RINGERS 1,000 ML IV ONE (15:55)
--- NOTE | 2016-10-25 16:15 | P.PCN ---
Date of Procedure: 10/25/16 Preoperative Diagnosis: Postoperative Diagnosis: Procedure(s) Performed: Procedure: Endoscopic retrograde cholangiography with sphincterotomy for the placement of a biliary stent Preoperative diagnosis: Biliary leak following recent cholecystectomy. Postoperative diagnosis: 1. Biliary leak demonstrated at the cystic duct stump. 2 Sphincterotomy performed as we were unable to advance the biliary stent into the common bile duct until after sphincterotomy. 3. 7-[place] 5 cm [place] biliary stent successfully placed with good position. Preparation and sedation: Was provided by anesthesia. Brief clinical history: The patient is a 61-year-old female admitted post exploratory laparotomy. Patient had laparoscopic cholecystectomy around 8 days ago. She continued to have abdominal pain postoperatively for which she came back to the hospital. Patient underwent exploratory laparotomy and 2.2 L of bilious fluid was removed and J-tube was left in place and we were asked to see her for placement of a biliary stent. The details are summarized in the history and physical and dictated consultations and progress notes. Procedure: With the patient in the prone position and after informed consent and adequate sedation, I passed the Olympus video duodenoscope down the esophagus into the stomach then passed it through the pylorus into the duodenum and brought the papilla into view. Initial cannulation and injection with dye resulted in opacification of the common bile duct and biliary tree. The bile leak at the cystic duct stump was demonstrated. There were no filling defects in the common bile duct. Initially, I attempted to advance a biliary stent into the papillary orifice without sphincterotomy but after 2 attempts I decided to perform a sphincterotomy to enable the advancement of the stent into the distal common bile duct. After successful sphincterotomy I was then able to advance and [place] 7-[place] 5 cm biliary stent into the distal common bile duct and keep it in good position then the endoscope was withdrawn. The patient tolerated the procedure well. Plan: The patient is already on antibiotics which will be continued. Will allow liquid diet and monitor her condition closely. Implants: Indications for Procedure: Operative Findings: Description of Procedure:
--- NOTE | 2016-10-25 16:16 | FL ---
EXAMINATION TYPE: FL ERCP biliary duct only DATE OF EXAM: 10/25/2016 COMPARISON: NONE HISTORY: Stent insertion Fluoroscopy support supplied to the referring clinician. See dictated report from gastroenterology, 1.22 minutes fluoroscopy time supplied, intraoperative C-arm image documents the procedure
--- NOTE | 2016-10-25 18:03 | P.PN ---
Progress Note - Text the patient underwent ERCP with common bile duct stent placement she is found to have a cystic duct stump leak. She states she feels better. On exam her vital signs appear stable. Her abdomen is soft. There is some mild incisional tenderness. There is no significant rebound or guarding. Status post cholecystectomy with biloma secondary to cystic duct stump leak. Patient has had successful placement ERCP placed common bile duct stent. She will have her CBC rechecked tomorrow. She'll continue IV antibiotics.
--- NOTE | 2016-10-25 18:07 | CONS ---
DATE OF CONSULTATION: 10/23/2016 REASON FOR CONSULTATION: Possible biliary leak and peritonitis. HISTORY OF PRESENT ILLNESS: The patient is a 61-year-old female who is status post laparoscopic cholecystectomy done by Dr. Vital 10/15/16 at [facility]. The patient brought back to the ER and ( ) with abdominal pain. The patient said the pain has been there since he had the surgery done. Described to be dull aching pain and all over the abdomen. It was intensity 10 out of 10 with no radiation. No nausea or vomiting and no diarrhea or constipation. With these symptoms, the patient was evaluated at an outside facility where the patient did have CT of the abdomen and pelvis which did show evidence of nonspecific ascites and question biliary leak for which the patient was transferred back to [facility]. The patient did have a HIDA scan done yesterday that was suggestive of a biliary leak. She was subsequently taken back to the OR by Dr. Vital status post laparotomy. She di have 2.2 L of biliary fluid drained. However, no clear focus of the leak was noticed. She was started on Levaquin and Flagyl. Admitted to the hospital and I was asked to see the patient today for further recommendation regarding antibiotic therapy. The patient did undergo ERCP this afternoon. The patient did have low grade fever of 100.3 with white count 19.2. It is up to 20.5 today. REVIEW OF SYSTEMS: Constitutional: Positive for weakness and low grade fever. EYES: No complaint. HEENT: No complaint. Respiratory: No complaint. Cardiovascular: No complaint. : No complaint. Gastrointestinal: As per history of present illness. Musculoskeletal: No complaint. Integumentary: As per HPI. Psychological: No complaint. Endocrine: No complaint. Neurological: No complaint. Past medical history significant for sleep apnea, urinary tract infection, chronic cholecystitis, uritis. Past surgical history: Adenoidectomy, bariatric surgery, cholecystectomy, hysterectomy. Lap band, right hip replacement and recent laparoscopic cholecystectomy. SOCIAL HISTORY: No history of smoking, drinking or drug use. FAMILY HISTORY: Mother with history of diabetes and hypertension. Father with history of diabetes and heart disease. ALLERGIES: PENICILLIN, HOWEVER TOLERATED KEFLEX. ( ) SULFA. Medications include the patient is currently on: 1. [place]. 2. Colace. 3. Cymbalta. 4. Lovenox. 5. Pepcid. 6. Dilaudid. 7. Reglan. 8. Toprol XL. 9. Flagyl. 10. Narcan. On examination, blood pressure is 131/58 with a pulse of 88. Temperature 98.4. T-Max is 100.6. She is 95% on room air. General description is a middle age female lying in bed, in no distress. No tachypnea or accessory muscles of respiration use. HEENT: Examination shows no pallor and no sclera icterus. Oral mucosa membranes dry. NECK: Trachea is central. No thyromegaly. LUNGS: Unlabored breathing. Clear to auscultation anteriorly. HEART: S1, S2 regular rate and rhythm. ABDOMEN: Soft. Mild tenderness. Minimal tender to touch. No guarding and no rigidity. EXTREMITIES: No edema of the feet. SKIN: No rash or mass palpable. NEUROLOGICALLY: The patient is awake, alert and oriented times three. Mood and affect normal. LABS: Hemoglobin 12.5, white count 20.5, BUN 18, creatinine 0.76. Electrolytes have been normal. Bilirubin 1.4. ALT/AST are normal. No cultures have been done. DIAGNOSTIC IMPRESSION AND PLAN: 1. The patient admitted to the hospital with abdominal pain. Did have low grade fever with elevated white count with likely component of a biliary peritonitis. Underlying infection less likely but cannot be entirely excluded though likely ( ) gram negative. Mostly aerobes and less like anaerobes. 2. The patient does have MULTIPLE ANTIBIOTIC ALLERGIES that does limit the number of antibiotics that can be safely used. ALLERGY to PENICILLIN WITH RASH AND HAS TOLERATED KEFLEX . PLAN: 1. Discontinue Levaquin. 2. We will start the patient on ( ) continue Flagyl. 3. Blood cultures times two before giving the Rocephin. 4. Follow-up on the clinical condition and cultures to further adjust medication if needed. Family present at the bedside. All their questions and concerns were answered. YANNA
[2016-10-25] MEDS: METOPROLOL SUCCINATE (ER) 25 MG TAB.ER.24H PO SCH (20:18)
--- NOTE | 2016-10-26 00:11 | P.PN ---
Subjective Principal diagnosis: Abdominal pain with the recent cholecystectomy. Suspected bile leak 61-year-old female admitted post expiratory laparotomy. Patient at week ago had a cholecystectomy. Patient's the had continued abdominal pain because of which she came back to the hospital. Patient underwent x-ray laparotomy and 2.2 L of bilious fluid was removed and patient probably has sepsis from that. Patient does have leukocytosis. Patient is ALLERGIC to penicillin and patient is presently on 1 25 mL of lactated Ringer's along with metronidazole and levofloxacin which are appropriate antibiotics for intra-abdominal sepsis. Patient is still having a lot of anesthesia denied any symptoms at this point of time although patient is still under influence of anesthesia. On 10/25/2016 Patient is still having abdominal distention and bile drain tube is in place. No fever no chills. Patient will be undergoing ERCP today. No fever no chills. Patient is being continued on IV antibiotics. Objective - Vital Signs Vital signs: Vital Signs Temp 97.9 F 10/25/16 16:26 Pulse 78 10/25/16 20:20 Resp 16 10/25/16 15:00 BP 120/58 10/25/16 20:20 Pulse Ox 95 10/25/16 16:59 Intake & Output 10/25/16 10/25/16 10/26/16 06:59 18:59 06:59 Intake Total 1250 400 Output Total 160 215 Balance 1090 185 Weight 89.584 kg Intake: IV 400 Intake, IV Titration 1250 Amount Sodium Chloride 0.9% 1, 1250 000 ml @ 100 mls/hr IV . Q10H STA Rx#:[id number] Output: Drainage 160 215 Bilateral Abdomen 25 Left Lower Abdomen 20 10 Right Upper Abdomen 140 180 Other: Voiding Method Toilet Toilet # Voids 1 1 - Exam GENERAL: The patient is alert and oriented x3, not in any acute distress. Well developed, well nourished. HEENT: Pupils are round and equally reacting to light. EOMI. No scleral icterus. No conjunctival pallor. Normocephalic, atraumatic. No pharyngeal erythema. No thyromegaly. CARDIOVASCULAR: S1 and S2 present. No murmurs, rubs, or gallops. PULMONARY: Chest is clear to auscultation, no wheezing or crackles. ABDOMEN: Patient has a biliary drain, abdomen is distended, sluggish bowel sounds. MUSCULOSKELETAL: No joint swelling or deformity. EXTREMITIES: No cyanosis, clubbing, or pedal edema. NEUROLOGICAL: Gross neurological examination did not reveal any focal deficits. SKIN: No rashes. - Labs CBC & Chem 7: 10/25/16 07:43 10/25/16 07:43 Labs: Abnormal Lab Results - Last 24 Hours (Table) 10/25/16 10/25/16 Range/Units 07:43 07:43 WBC 20.5 H (3.8-10.6) k/uL MCHC 30.9 L (31.0-37.0) g/dL Neutrophils # 16.8 H (1.3-7.7) k/uL Lymphocytes # 0.8 L (1.0-4.8) k/uL Monocytes # 2.3 H (0-1.0) k/uL Sodium 135 L (137-145) mmol/L BUN 18 H (7-17) mg/dL Glucose 112 H (74-99) mg/dL Calcium 7.8 L (8.4-10.2) mg/dL Total Bilirubin 1.4 H (0.2-1.3) mg/dL Total Protein 4.1 L (6.3-8.2) g/dL Albumin 2.0 L (3.5-5.0) g/dL Assessment and Plan Plan: 1 sepsis: Secondary to biliary leak patient is on appropriate antibiotics ceftriaxone and metronidazole. Patient is ALLERGIC to penicillins. Patient is on IV fluids at 1 25 mL per hour. #2 suspected bile leak. GI is planning for ERCP today.. #2 hyponatremia: Hypervolemic hyponatremia expected to improve with IV fluids. 3 sleep apnea patient does use CPAP machine at home which will be continued. #4 status post laparotomy and a recent cholecystectomy.: Pain management and DVT prophylaxis per primary service Time with Patient: Greater than 30
[2016-10-26] MEDS: metroNIDAZOLE-NS PMX 500 MG in SALINE 1 100ML.BAG IVPB SCH ×3 (07:43→23:59)
[2016-10-26] MEDS: HYDROmorphone 1 MG/ML 1 ML SYRINGE IV PRN ×5 (07:44→23:59)
[2016-10-26] MEDS: DOCUSATE 100 MG CAP PO SCH ×2 (07:47→21:14)
[2016-10-26] MEDS: ENOXAPARIN 40 MG/0.4 ML SYRINGE SQ SCH (07:47)
[2016-10-26] MEDS: DULoxetine HCL 30 MG CAPSULE.DR PO SCH (07:47)
[2016-10-26] MEDS: FAMOTIDINE 20 MG/2 ML VIAL IV SCH ×2 (07:48→21:14)
[2016-10-26] MEDS: TIMOLOL 0.5% OPHTH DROPS 5 ML BTL BOTH EYES SCH (07:48)
[2016-10-26 08:52] LABS: Basophils # (A) 0.1 k/uL (0-0.2); Basophils % (A) 1 %; CH 28.7; Eosinophils # (A) 0.6 k/uL (0-0.7); Eosinophils % (A) 4 %; HCT 36.1 % (34.0-46.0); HDW 2.63; HGB 11.3 gm/dL (11.4-16.0); Luc % (Auto) 1; Lymphocytes # (A) 0.6 k/uL (1.0-4.8); Lymphocytes % (A) 4 %; MCH 28.1 pg (25.0-35.0); MCHC 31.3 g/dL (31.0-37.0); Mean Platelet Volume 7.8; Monocytes # (A) 1.1 k/uL (0-1.0); Monocytes % (A) 7 %; Neutrophils # (A) 13.1 k/uL (1.3-7.7); Neutrophils % (A) 83 %; RBC 4.02 m/uL (3.80-5.40); RDW 13.6 % (11.5-15.5); WBC 15.7 k/uL (3.8-10.6); WBC (Perox) 16.33
[2016-10-26 09:12] LABS: Anion Gap 7 mmol/L; Blood Urea Nitrogen 16 mg/dL (7-17); Calcium 7.6 mg/dL (8.4-10.2); Carbon Dioxide 23 mmol/L (22-30); Chloride 104 mmol/L (98-107); Glucose 81 mg/dL (74-99); Non-African American GFR(MDRD) >60 (>60 ml/min/1.73 sqM); Potassium 4.6 mmol/L (3.5-5.1); Sodium 134 mmol/L (137-145)
[2016-10-26] MEDS: cefTRIAXone 2,000 MG in SODIUM CHLORIDE 0.9% 100 ML IVPB SCH (09:16)
--- NOTE | 2016-10-26 09:20 | P.PN ---
Subjective Principal diagnosis: Biliary leak Recent laparoscopic cholecystectomy. Status post diagnostic laparoscopy drainage of biloma followed by ERCP with biliary stent placement yesterday for biliary leak. Feels better. Abdominal pain improved. Afebrile. Tolerating clear liquids. Objective - Vital Signs Vital signs: Vital Signs Temp 97.9 F 10/26/16 07:00 Pulse 77 10/26/16 08:00 Resp 16 10/26/16 08:00 BP 121/56 10/26/16 07:00 Pulse Ox 95 10/26/16 07:00 Intake & Output 10/25/16 10/26/16 10/26/16 18:59 06:59 18:59 Intake Total 400 900 Output Total 215 55 Balance 185 845 Weight 89.584 kg 89.584 kg Intake: IV 400 Intake, IV Titration 900 Amount Lactated Ringers 1,000 ml 800 As IV .[facility]K-[facility] Rx#: [id number] metroNIDAZOLE-NS PMX 500 100 mg In Saline 1 100ml.bag @ 100 mls/hr IVPB Q8HR COUNTS INCLUDE 234 BEDS AT THE [facility] Rx#:[id number] Output: Gastric Drainage 55 Drainage 215 Bilateral Abdomen 25 Left Lower Abdomen 10 Right Upper Abdomen 180 Other: Voiding Method Toilet Toilet Toilet # Voids 1 3 - Exam General appearance: The patient is alert, oriented, in no acute distress. HET: Head is normocephalic and atraumatic. Pupils are equal and reactive. Oropharynx is clear without lesions. Neck: Supple without lymphadenopathy. Trachea midline. Heart: S1 S2. Regular rate and rhythm. Lungs: No crackles or wheezes are heard. Abdomen: Soft, abdominal dressings with old serosanguineous drainage. DAI 2 both with serosanguineous drainage. Mildly bloated with abdominal binder with bowel sounds. No peritoneal signs. No palpable organomegaly or masses. Extremities: Normal skin color and turgor. No cyanosis, rash, ulceration, clubbing, or edema. Radial and pedal pulses are 2/4 bilaterally. Neurological: No focal deficits. Strength and sensation are grossly intact. - Labs CBC & Chem 7: 10/26/16 08:23 10/25/16 07:43 Labs: Abnormal Lab Results - Last 24 Hours (Table) 10/26/16 Range/Units 08:23 WBC 15.7 H (3.8-10.6) k/uL Hgb 11.3 L (11.4-16.0) gm/dL Neutrophils # 13.1 H (1.3-7.7) k/uL Lymphocytes # 0.6 L (1.0-4.8) k/uL Monocytes # 1.1 H (0-1.0) k/uL Assessment and Plan Plan: Impression: 1. Biliary leak following recent laparoscopic cholecystectomy status post ERCP with biliary stent placement. Recommendations: 1. Return to office in [address] Lei for reevaluation and discussion removal of biliary stent. Discharge per medicine/surgery. Assessment and plan a care with Dr. Acevedo
--- NOTE | 2016-10-26 17:53 | P.PN ---
Progress Note - Text The patient states she feels much better today. Her pain is improved significantly. On exam her vital signs are stable. Her abdomen soft. Incision site is clean dry tach. Status post laparoscopic cholecystectomy with subsequent bile leak from the cystic duct stump. Patient had undergone ERCP and stent placement. She is improving slowly. I think she will remain in the hospital another 2-3 days.
[2016-10-26] MEDS: METOPROLOL SUCCINATE (ER) 25 MG TAB.ER.24H PO SCH (21:14)
[2016-10-26] MEDS: HYDROcodone/APAP 7.5-325MG 1 EACH TAB PO PRN (21:17)
--- NOTE | 2016-10-26 23:11 | PN ---
DATE OF SERVICE: 10/26/2016 REASON FOR FOLLOWUP: Secondary peritonitis. INTERVAL HISTORY: The patient is afebrile. She is currently breathing comfortably. Her abdominal pain has improved compared to yesterday. No nausea, vomiting or any diarrhea. On examination, blood pressure is 115/55 with a pulse of 71, temperature 98.1. She is 94% on room air. General description is a middle-aged female lying in bed in no distress. RESPIRATORY SYSTEM: Unlabored breathing. Clear to auscultation anteriorly. HEART: S1, S2. Regular rate and rhythm. ABDOMEN: Soft. Slightly distended. No guarding or rigidity. LABS: White count down to 15.7. Blood culture so far negative. DIAGNOSTIC IMPRESSION AND PLAN: Patient with secondary peritonitis from biliary leak. The patient is status post laparotomy and drainage of the biloma followed by ERCP. Patient did have a biliary stent placed yesterday. Patient at this time will continue with Rocephin and Flagyl, adjusting antibiotics further depending on clinical response. Continue supportive care. MTDD
--- NOTE | 2016-10-27 00:19 | P.PN ---
Subjective Principal diagnosis: Abdominal pain with the recent cholecystectomy. Suspected bile leak 61-year-old female admitted post expiratory laparotomy. Patient at week ago had a cholecystectomy. Patient's the had continued abdominal pain because of which she came back to the hospital. Patient underwent x-ray laparotomy and 2.2 L of bilious fluid was removed and patient probably has sepsis from that. Patient does have leukocytosis. Patient is ALLERGIC to penicillin and patient is presently on 1 25 mL of lactated Ringer's along with metronidazole and levofloxacin which are appropriate antibiotics for intra-abdominal sepsis. Patient is still having a lot of anesthesia denied any symptoms at this point of time although patient is still under influence of anesthesia. On 10/25/2016 Patient is still having abdominal distention and bile drain tube is in place. No fever no chills. Patient will be undergoing ERCP today. No fever no chills. Patient is being continued on IV antibiotics. 10/26/2016 Patient symptomatically improved. No abdominal pain. Patient had ERCP and stent placement due to ductal clamp leak. Patient is being continued on antibiotics. No fever no chills no acute overnight issues Objective - Vital Signs Vital signs: Vital Signs Temp 98.1 F 10/26/16 15:00 Pulse 71 10/26/16 15:00 Resp 16 10/26/16 15:00 BP 115/55 10/26/16 15:00 Pulse Ox 94 L 10/26/16 15:00 Intake & Output 10/26/16 10/26/16 10/27/16 06:59 18:59 06:59 Intake Total 900 600 120 Output Total 55 25 Balance 845 600 95 Weight 89.584 kg 89.584 kg Intake: Intake, IV Titration 900 200 Amount Lactated Ringers 1,000 ml 800 As IV .[facility] Rx#: [id number] cefTRIAXone 2,000 mg In 100 Sodium Chloride 0.9% 100 ml @ 100 mls/hr IVPB Q24HR [facility] Rx#:[id number] metroNIDAZOLE-NS PMX 500 100 100 mg In Saline 1 100ml.bag @ 100 mls/hr IVPB Q8HR [facility] Rx#:[id number] Oral 400 120 Output: Gastric Drainage 55 Drainage 25 Right Upper Abdomen 25 Other: Voiding Method Toilet Toilet # Voids 3 3 - Exam GENERAL: The patient is alert and oriented x3, not in any acute distress. Well developed, well nourished. HEENT: Pupils are round and equally reacting to light. EOMI. No scleral icterus. No conjunctival pallor. Normocephalic, atraumatic. No pharyngeal erythema. No thyromegaly. CARDIOVASCULAR: S1 and S2 present. No murmurs, rubs, or gallops. PULMONARY: Chest is clear to auscultation, no wheezing or crackles. ABDOMEN: Patient has a biliary drain, abdomen is distended, sluggish bowel sounds. MUSCULOSKELETAL: No joint swelling or deformity. EXTREMITIES: No cyanosis, clubbing, or pedal edema. NEUROLOGICAL: Gross neurological examination did not reveal any focal deficits. SKIN: No rashes. - Labs CBC & Chem 7: 10/26/16 08:23 10/26/16 08:23 Labs: Abnormal Lab Results - Last 24 Hours (Table) 10/26/16 10/26/16 Range/Units 08:23 08:23 WBC 15.7 H (3.8-10.6) k/uL Hgb 11.3 L (11.4-16.0) gm/dL Neutrophils # 13.1 H (1.3-7.7) k/uL Lymphocytes # 0.6 L (1.0-4.8) k/uL Monocytes # 1.1 H (0-1.0) k/uL Sodium 134 L (137-145) mmol/L Calcium 7.6 L (8.4-10.2) mg/dL Microbiology - Last 24 Hours (Table) 10/25/16 10:45 Blood Culture - Preliminary Blood No Growth after 24 hours Assessment and Plan Plan: 1 sepsis secondary to peritonitis. Secondary to biliary leak. patient is on appropriate antibiotics ceftriaxone and metronidazole. Patient is ALLERGIC to penicillins. Patient is on IV fluids at 1 25 mL per hour. Leukocytosis improving. #2 bile leak through ductal clamp. Status post ERCP and stent placement #2 hyponatremia: Hypervolemic hyponatremia expected to improve with IV fluids. 3 sleep apnea patient does use CPAP machine at home which will be continued. #4 status post laparotomy and a recent cholecystectomy.: Pain management and DVT prophylaxis per primary service
[2016-10-27] MEDS: metroNIDAZOLE-NS PMX 500 MG in SALINE 1 100ML.BAG IVPB SCH ×2 (09:20→18:30)
[2016-10-27] MEDS: FAMOTIDINE 20 MG/2 ML VIAL IV SCH (09:25)
[2016-10-27] MEDS: DOCUSATE 100 MG CAP PO SCH ×2 (09:25→21:13)
[2016-10-27] MEDS: ENOXAPARIN 40 MG/0.4 ML SYRINGE SQ SCH (09:25)
[2016-10-27] MEDS: TIMOLOL 0.5% OPHTH DROPS 5 ML BTL BOTH EYES SCH (09:25)
[2016-10-27] MEDS: DULoxetine HCL 30 MG CAPSULE.DR PO SCH (09:26)
[2016-10-27] MEDS: HYDROcodone/APAP 7.5-325MG 1 EACH TAB PO PRN ×2 (09:31→21:16)
[2016-10-27] MEDS: cefTRIAXone 2,000 MG in SODIUM CHLORIDE 0.9% 100 ML IVPB SCH (10:15)
--- NOTE | 2016-10-27 15:28 | P.PN ---
Subjective 61-year-old female being seen this morning on rounds. Currently is sitting up in a chair. Patient states pain medication "makes me feel woozy lightheaded. Patient reports no appetite. Patient has been receiving IV dilaudid for pain. Patient is status post ERCP with biliary stent placement for biliary leak done by GI service. Patient underwent a recent upper scopic cholecystectomy. Patient is status post diagnostic laparoscopic drainage of biloma followed by an ERCP with biliary stent placement done on the . Patient has 2 Melquiades- Toscano drains in place. No reports of nausea vomiting no complaints of chest pain or shortness of breath Objective - Vital Signs Vital signs: Vital Signs Temp 97.0 F L 10/27/16 07:00 Pulse 75 10/27/16 08:00 Resp 18 10/27/16 08:00 BP 135/73 10/27/16 07:00 Pulse Ox 98 10/27/16 07:00 Intake & Output 10/26/16 10/27/16 10/27/16 18:59 06:59 18:59 Intake Total 600 320 Output Total 140 Balance 600 180 Weight 89.584 kg 89.584 kg Intake: IV 100 metroNIDAZOLE-NS PMX 500 100 mg In Saline 1 100ml.bag @ 100 mls/hr IVPB Q8HR [facility] Rx#:[id number] Intake, IV Titration 200 Amount cefTRIAXone 2,000 mg In 100 Sodium Chloride 0.9% 100 ml @ 100 mls/hr IVPB Q24HR [facility] Rx#:[id number] metroNIDAZOLE-NS PMX 500 100 mg In Saline 1 100ml.bag @ 100 mls/hr IVPB Q8HR [facility] Rx#:[id number] Oral 400 220 Output: Drainage 140 Left Lower Abdomen 25 Right Upper Abdomen 115 Other: Voiding Method Toilet Toilet Toilet # Voids 3 1 1 - Exam GENERAL APPEARANCE: 61-year-old female patient is alert, oriented, in no acute distress. Sitting up in a chair VITAL SIGNS: Reviewed HEENT: Head is normocephalic and atraumatic. Pupils are equal and reactive. The nares are patent. Oropharynx is clear without lesions. NECK: Supple without lymphadenopathy. Traches midline. HEART: S1, S2. Regular rate and rhythm. Denying chest pain LUNGS: No crackles or wheezes are heard. On room air ABDOMEN: Soft. Abdominal dressings dry with old serous sanguinous drainage noted. DAI drain 2 serous drainage noted. Abdominal binder in place bowel tones present. No palpable organomegaly. Patient states urinating no difficulty. Patient states no stool is not passing any gas rectally EXTREMITIES: Normal skin color and turgor. No cyanosis, rash, ulceration, clubbing or edema. Radial pedal pulses are 2/4 bilaterally. NEUROLOGICAL: No focal deficits. Strength and sensation are grossly intact. - Labs CBC & Chem 7: 10/26/16 08:23 10/26/16 08:23 Labs: Microbiology - Last 24 Hours (Table) 10/25/16 10:45 Blood Culture - Preliminary Blood No Growth after 48 hours Assessment and Plan Plan: Impression A recent laparoscopic cholecystectomy Biliary leak following recent laparoscopic cholecystectomy status post ERCP with biliary stent present on admission abdominal pain suspect due to biliary leak Present on admission sepsis suspect due to a biliary leak Present on admission hyponatremia History of sleep apnea with CPAP therapy Status post October 24 evacuation of biloma with drain placement, exploratory laparotomy, diagnostic laparotomy for abdominal pain Plan Continue postop surgical care as ordered Increase activity Pain control DVT and GI prophylaxis Monitor labs IV Rocephin and Flagyl as ordered Resume home meds as appropriate The above impression and plan of care have been discussed and directed by signing physician. Josefina Fernandez nurse practitioner acting as scribe for signing physician.
--- NOTE | 2016-10-27 17:58 | PN ---
DATE OF SERVICE: 10/27/16 REASON FOR FOLLOW UP: Secondary peritonitis. INTERVAL HISTORY: The patient is afebrile. The patient is feeling slightly nauseated but no vomiting. Denies significant chest pain or shortness of breath or cough. No worsening abdominal pain or any diarrhea. On examination, blood pressure 135/73 with a pulse of 75. Temperature 97. She is 98% on room air. General description is a middle aged female up in the chair in no distress. Respiratory system unlabored breathing. Clear to auscultation anteriorly. Heart S1, S2 regular rate and rhythm. Abdomen soft. Minimally distended. No guarding. No rigidity. LABS: No new labs have been obtained today. Blood culture has been negative so far. DIAGNOSTIC IMPRESSION AND PLAN: The patient with secondary peritonitis and biliary leak status post ERCP and stent placement. PLAN: The patient did have laparotomy and drainage of the ( ). Blood cultures negative so far. No local cultures were done. We will keep the patient on Rocephin and Flagyl. Continue supportive care. MTDD
[2016-10-27] MEDS: METOPROLOL SUCCINATE (ER) 25 MG TAB.ER.24H PO SCH (21:13)
[2016-10-27] MEDS: FAMOTIDINE 20 MG TAB PO SCH (21:13)
[2016-10-28] MEDS: metroNIDAZOLE-NS PMX 500 MG in SALINE 1 100ML.BAG IVPB SCH ×3 (00:33→15:57)
--- NOTE | 2016-10-28 02:02 | P.PN ---
Subjective Principal diagnosis: Abdominal pain with the recent cholecystectomy. Suspected bile leak 61-year-old female admitted post expiratory laparotomy. Patient at week ago had a cholecystectomy. Patient's the had continued abdominal pain because of which she came back to the hospital. Patient underwent x-ray laparotomy and 2.2 L of bilious fluid was removed and patient probably has sepsis from that. Patient does have leukocytosis. Patient is ALLERGIC to penicillin and patient is presently on 1 25 mL of lactated Ringer's along with metronidazole and levofloxacin which are appropriate antibiotics for intra-abdominal sepsis. Patient is still having a lot of anesthesia denied any symptoms at this point of time although patient is still under influence of anesthesia. On 10/25/2016 Patient is still having abdominal distention and bile drain tube is in place. No fever no chills. Patient will be undergoing ERCP today. No fever no chills. Patient is being continued on IV antibiotics. 10/26/2016 Patient symptomatically improved. No abdominal pain. Patient had ERCP and stent placement due to ductal clamp leak. Patient is being continued on antibiotics. No fever no chills no acute overnight issues 10/27/2016 Patient is improving symptomatically. No fever no chills. No acute overnight issues. Patient is passing flatus. Patient is still nauseous. Objective - Vital Signs Vital signs: Vital Signs Temp 97.4 F L 10/27/16 15:00 Pulse 67 10/27/16 16:00 Resp 18 10/27/16 16:00 BP 133/60 10/27/16 15:00 Pulse Ox 98 10/27/16 15:00 Intake & Output 10/27/16 10/27/16 10/28/16 06:59 18:59 06:59 Intake Total 320 Output Total 140 Balance 180 Weight 89.584 kg Intake: IV 100 metroNIDAZOLE-NS PMX 500 100 mg In Saline 1 100ml.bag @ 100 mls/hr IVPB Q8HR [facility] Rx#:[id number] Oral 220 Output: Drainage 140 Left Lower Abdomen 25 Right Upper Abdomen 115 Other: Voiding Method Toilet Toilet # Voids 1 1 - Exam GENERAL: The patient is alert and oriented x3, not in any acute distress. Well developed, well nourished. HEENT: Pupils are round and equally reacting to light. EOMI. No scleral icterus. No conjunctival pallor. Normocephalic, atraumatic. No pharyngeal erythema. No thyromegaly. CARDIOVASCULAR: S1 and S2 present. No murmurs, rubs, or gallops. PULMONARY: Chest is clear to auscultation, no wheezing or crackles. ABDOMEN: Patient has a biliary drain, abdomen is distended, sluggish bowel sounds. MUSCULOSKELETAL: No joint swelling or deformity. EXTREMITIES: No cyanosis, clubbing, or pedal edema. NEUROLOGICAL: Gross neurological examination did not reveal any focal deficits. SKIN: No rashes. - Labs CBC & Chem 7: 10/26/16 08:23 10/26/16 08:23 Labs: Microbiology - Last 24 Hours (Table) 10/25/16 10:45 Blood Culture - Preliminary Blood No Growth after 48 hours Assessment and Plan Plan: 1 sepsis secondary to peritonitis. Secondary to biliary leak. patient is on appropriate antibiotics ceftriaxone and metronidazole. Patient is ALLERGIC to penicillins. Patient is on IV fluids at 1 25 mL per hour. Leukocytosis improving. #2 bile leak through ductal clamp. Status post ERCP and stent placement #2 hyponatremia: Hypervolemic hyponatremia expected to improve with IV fluids. 3 sleep apnea patient does use CPAP machine at home which will be continued. #4 status post laparotomy and a recent cholecystectomy.: Pain management and DVT prophylaxis per primary service
[2016-10-28 07:48] LABS: Basophils # (A) 0.1 k/uL (0-0.2); Basophils % (A) 1 %; CHCM 32.7; Eosinophils # (A) 0.5 k/uL (0-0.7); Eosinophils % (A) 4 %; HCT 35.9 % (34.0-46.0); HDW 2.66; HGB 11.5 gm/dL (11.4-16.0); Luc # (Auto) 0.22; Luc % (Auto) 2; Lymphocytes # (A) 0.7 k/uL (1.0-4.8); Lymphocytes % (A) 5 %; MCH 28.6 pg (25.0-35.0); MCHC 32.1 g/dL (31.0-37.0); Mean Platelet Volume 7.8; Monocytes % (A) 7 %; Neutrophils # (A) 12.1 k/uL (1.3-7.7); Neutrophils % (A) 83 %; RBC 4.03 m/uL (3.80-5.40); RDW 13.8 % (11.5-15.5); WBC 14.6 k/uL (3.8-10.6); WBC (Perox) 14.92
[2016-10-28] MEDS: DULoxetine HCL 30 MG CAPSULE.DR PO SCH (07:57)
[2016-10-28] MEDS: ENOXAPARIN 40 MG/0.4 ML SYRINGE SQ SCH (07:57)
[2016-10-28] MEDS: FAMOTIDINE 20 MG TAB PO SCH ×2 (07:58→22:09)
[2016-10-28] MEDS: TIMOLOL 0.5% OPHTH DROPS 5 ML BTL BOTH EYES SCH (07:58)
[2016-10-28] MEDS: DOCUSATE 100 MG CAP PO SCH ×2 (07:58→22:09)
[2016-10-28] MEDS: HYDROcodone/APAP 5-325MG 1 EACH TAB PO PRN ×2 (08:00→15:21)
[2016-10-28 08:03] LABS: Anion Gap 10 mmol/L; Blood Urea Nitrogen 11 mg/dL (7-17); Calcium 7.8 mg/dL (8.4-10.2); Carbon Dioxide 22 mmol/L (22-30); Chloride 102 mmol/L (98-107); Glucose 65 mg/dL (74-99); Non-African American GFR(MDRD) >60 (>60 ml/min/1.73 sqM); Potassium 4.1 mmol/L (3.5-5.1); Sodium 134 mmol/L (137-145)
[2016-10-28] MEDS: cefTRIAXone 2,000 MG in SODIUM CHLORIDE 0.9% 100 ML IVPB SCH (09:25)
--- NOTE | 2016-10-28 16:25 | P.PN ---
Subjective 61-year-old female seen and examined currently sitting up in a chair. Nursing reports patient is much encouragement to ambulate. Patient did ambulate short distance in the hallway this afternoon. Patient states that just tired out have no appetite. Patient is status post ERCP with biliary stent placement for biliary leak done by GI service. Patient underwent a recent upper scopic cholecystectomy. Patient is status post diagnostic laparoscopic drainage of biloma followed by an ERCP with biliary stent placement done on the . Patient has 2 Melquiades- Toscano drains in place. No reports of nausea vomiting no complaints of chest pain or shortness of breath Objective - Vital Signs Vital signs: Vital Signs Temp 98.7 F 10/28/16 14:42 Pulse 74 10/28/16 14:42 Resp 16 10/28/16 14:42 BP 136/63 10/28/16 14:42 Pulse Ox 97 10/28/16 14:42 Intake & Output 10/27/16 10/28/16 10/28/16 18:59 06:59 18:59 Intake Total 200 440 Output Total 60 60 Balance 140 380 Weight 89.584 kg 89.584 kg Intake: IV 200 100 metroNIDAZOLE-NS PMX 500 200 100 mg In Saline 1 100ml.bag @ 100 mls/hr IVPB Q8HR [facility] Rx#:[id number] Intake, IV Titration 100 Amount cefTRIAXone 2,000 mg In 100 Sodium Chloride 0.9% 100 ml @ 100 mls/hr IVPB Q24HR [facility] Rx#:[id number] Oral 240 Output: Drainage 60 60 Left Lower Abdomen 20 20 Right Upper Abdomen 40 40 Other: Voiding Method Toilet Toilet Toilet # Voids 1 3 # Bowel Movements 2 - Exam GENERAL APPEARANCE: 61-year-old female patient is alert, oriented, in no acute distress. Sitting up in a chair patient states she's tired out today has no appetite VITAL SIGNS: Reviewed HEENT: Head is normocephalic and atraumatic. Pupils are equal and reactive. The nares are patent. Oropharynx is clear without lesions. NECK: Supple without lymphadenopathy. Traches midline. HEART: S1, S2. Regular rate and rhythm. Denying chest pain LUNGS: No crackles or wheezes are heard. On room air no cough noted ABDOMEN: Soft. Abdominal dressings dry with old serous sanguinous drainage noted. DAI drain 2 serous drainage noted. Abdominal binder in place bowel tones present. No palpable organomegaly. Patient states urinating no difficulty. Patient states no stool is not passing any gas rectally EXTREMITIES: Normal skin color and turgor. No cyanosis, rash, ulceration, clubbing or edema. Radial pedal pulses are 2/4 bilaterally. NEUROLOGICAL: No focal deficits. Strength and sensation are grossly intact. - Labs CBC & Chem 7: 10/28/16 07:15 10/28/16 07:15 Labs: Abnormal Lab Results - Last 24 Hours (Table) 10/28/16 10/28/16 Range/Units 07:15 07:15 WBC 14.6 H (3.8-10.6) k/uL Neutrophils # 12.1 H (1.3-7.7) k/uL Lymphocytes # 0.7 L (1.0-4.8) k/uL Sodium 134 L (137-145) mmol/L Glucose 65 L (74-99) mg/dL Calcium 7.8 L (8.4-10.2) mg/dL Microbiology - Last 24 Hours (Table) 10/25/16 10:45 Blood Culture - Preliminary Blood No Growth after 72 hours Assessment and Plan Plan: Impression A recent laparoscopic cholecystectomy Biliary leak following recent laparoscopic cholecystectomy status post ERCP with biliary stent present on admission abdominal pain suspect due to biliary leak Present on admission sepsis suspect due to a biliary leak Present on admission hyponatremia History of sleep apnea with CPAP therapy Status post October 24 evacuation of biloma with drain placement, exploratory laparotomy, diagnostic laparotomy for abdominal pain Plan Continue postop surgical care as ordered Increase activity Pain control DVT and GI prophylaxis Monitor labs IV Rocephin and Flagyl as ordered Resume home meds as appropriate The above impression and plan of care have been discussed and directed by signing physician. Josefina Fernandez nurse practitioner acting as scribe for signing physician.
--- NOTE | 2016-10-28 17:08 | PN ---
DATE OF SERVICE: 10/28/2016 REASON FOR FOLLOWUP: Secondary peritonitis. INTERVAL HISTORY: The patient is afebrile. She is feeling slightly better today. Her abdominal pain has slightly improved. Has been tolerating clear liquid diet. No nausea, vomiting or any diarrhea. On examination, blood pressure is 140/65 with a pulse of 71, temperature 97.9. She is 97% on room air. General description is a middle-aged female up in the bed in no distress. RESPIRATORY SYSTEM: Unlabored breathing. Clear to auscultation anteriorly. HEART: S1, S2. Regular rate and rhythm. ABDOMEN: Soft. No tenderness. DAI drain ( ) serosanguineous secretions. LABS: White count down to 14.6. Blood culture has been negative. DIAGNOSTIC IMPRESSION AND PLAN: Patient with secondary peritonitis from biliary leak, status post ERCP and stenting placement. Patient at this time will continue Rocephin and Flagyl. Her white count is slowing improving. Blood culture has been negative. No fever. Will finish therapy with oral antibiotics. Continue supportive care. [facility]
[2016-10-28] MEDS: METOPROLOL SUCCINATE (ER) 25 MG TAB.ER.24H PO SCH (22:09)
[2016-10-29] MEDS: metroNIDAZOLE-NS PMX 500 MG in SALINE 1 100ML.BAG IVPB SCH ×3 (00:55→15:55)
[2016-10-29] MEDS: HYDROcodone/APAP 7.5-325MG 1 EACH TAB PO PRN ×2 (01:08→09:56)
[2016-10-29 07:24] LABS: ALT 31 U/L (9-52); AST 26 U/L (14-36); Alkaline Phosphatase 86 U/L (38-126); Anion Gap 7 mmol/L; Blood Urea Nitrogen 8 mg/dL (7-17); Calcium 7.6 mg/dL (8.4-10.2); Carbon Dioxide 24 mmol/L (22-30); Chloride 104 mmol/L (98-107); Glucose 76 mg/dL (74-99); Non-African American GFR(MDRD) >60 (>60 ml/min/1.73 sqM); Potassium 3.9 mmol/L (3.5-5.1); Sodium 135 mmol/L (137-145); Total Bilirubin 0.7 mg/dL (0.2-1.3); Total Protein 4.2 g/dL (6.3-8.2)
[2016-10-29] MEDS: DULoxetine HCL 30 MG CAPSULE.DR PO SCH (07:58)
[2016-10-29] MEDS: DOCUSATE 100 MG CAP PO SCH ×3 (07:58→20:47)
[2016-10-29] MEDS: ENOXAPARIN 40 MG/0.4 ML SYRINGE SQ SCH (07:58)
[2016-10-29] MEDS: FAMOTIDINE 20 MG TAB PO SCH ×2 (07:58→20:46)
[2016-10-29] MEDS: TIMOLOL 0.5% OPHTH DROPS 5 ML BTL BOTH EYES SCH (07:58)
[2016-10-29] MEDS: cefTRIAXone 2,000 MG in SODIUM CHLORIDE 0.9% 100 ML IVPB SCH (10:21)
--- NOTE | 2016-10-29 13:08 | P.PN ---
Subjective 61-year-old female being seen on rounds this morning. Sitting up in bed. Patient states "I feel much better today I don't feel this nauseated feeling like getting up and walking even ate something this morning. Patient states she feels less tired out this morning. Yesterday was feeling a little depressed I don't feel that way this morning I actually feel like I'm getting back to my self. Patient is status post ERCP with biliary stent placement for biliary leak done by GI service. Patient underwent a recent upper scopic cholecystectomy. Patient is status post diagnostic laparoscopic drainage of biloma followed by an ERCP with biliary stent placement done on the . Patient has 2 Melquiades- Toscano drains in place. No reports of nausea vomiting no complaints of chest pain or shortness of breath Objective - Vital Signs Vital signs: Vital Signs Temp 98.1 F 10/29/16 07:00 Pulse 72 10/29/16 08:00 Resp 16 10/29/16 08:00 BP 133/60 10/29/16 07:00 Pulse Ox 97 10/29/16 07:00 Intake & Output 10/28/16 10/29/16 10/29/16 18:59 06:59 18:59 Intake Total 440 640 240 Output Total 60 30 Balance 380 610 240 Weight 89.584 kg Intake: IV 100 100 metroNIDAZOLE-NS PMX 500 100 100 mg In Saline 1 100ml.bag @ 100 mls/hr IVPB Q8HR [facility] Rx#:[id number] Intake, IV Titration 100 300 Amount IV Fluid Continuation 250 300 ml As IV .[facility] Rx #:[id number] cefTRIAXone 2,000 mg In 100 Sodium Chloride 0.9% 100 ml @ 100 mls/hr IVPB Q24HR [facility] Rx#:[id number] Oral 240 240 240 Output: Drainage 60 30 Left Lower Abdomen 20 Right Upper Abdomen 40 30 Other: Voiding Method Toilet Toilet Toilet # Voids 3 2 # Bowel Movements 2 1 - Exam Physical exam 61-year-old female sitting up in bed appearing in no acute distress pleasant cooperative oriented 3 Lungs essentially clear adequate air movement Heart S1-S2 audible and regular Abdomen abdominal binder in place [address] the right drain dark secretions noted in the bulb the second drain serous drainage noted. Soft not distended states pain medication effective for pain control. Extremities no edema noted - Labs CBC & Chem 7: 08/17/17 07:15 10/29/16 06:27 Labs: Abnormal Lab Results - Last 24 Hours (Table) 10/29/16 Range/Units 06:27 Sodium 135 L (137-145) mmol/L Creatinine 0.51 L (0.52-1.04) mg/dL Calcium 7.6 L (8.4-10.2) mg/dL Total Protein 4.2 L (6.3-8.2) g/dL Albumin 2.1 L (3.5-5.0) g/dL Microbiology - Last 24 Hours (Table) 10/25/16 10:45 Blood Culture - Preliminary Blood No Growth after 96 hours Assessment and Plan Plan: Impression A recent laparoscopic cholecystectomy Biliary leak following recent laparoscopic cholecystectomy status post ERCP with biliary stent present on admission abdominal pain suspect due to biliary leak Present on admission sepsis suspect due to a biliary leak Present on admission hyponatremia History of sleep apnea with CPAP therapy Status post October 24 evacuation of biloma with drain placement, exploratory laparotomy, diagnostic laparotomy for abdominal pain Plan Continue postop surgical care as ordered Increase activity Pain control DVT and GI prophylaxis Monitor labs IV Rocephin and Flagyl as ordered Resume home meds as appropriate The above impression and plan of care have been discussed and directed by signing physician. Josefina Fernandez nurse practitioner acting as scribe for signing physician.
[2016-10-29] MEDS: HYDROcodone/APAP 5-325MG 1 EACH TAB PO PRN (14:30)
--- NOTE | 2016-10-29 16:53 | PN ---
DATE OF SERVICE: 10/29/2016 REASON FOR FOLLOW UP: Secondary peritonitis. INTERVAL HISTORY: The patient is afebrile. She is feeling better. Abdominal pain has improved. Patient is now complaining of some diarrhea. No blood or mucous in it. The patient did have stool for C. diff checked yesterday, which came back negative. On examination: Blood pressure 133/60 with pulse 72. Temperature 98.1. She is 97% on room air. General description is an elderly female up in the room in no distress. RESPIRATORY: Unlabored breathing. Clear to auscultation anteriorly. HEART: S1, S2 regular rate and rhythm. ABDOMEN: Soft, no tenderness. LABS: No white count was done today. Creatinine 0.51. DIAGNOSTIC IMPRESSION AND PLAN: 1. Patient with secondary peritonitis from biliary leak status post ERCP and stent placement. Blood cultures have been negative. She will continue on Rocephin and Flagyl. Plan to finish therapy on oral antibiotic. 2. Diarrhea ( ) will add Questran for symptomatic relief. C. diff was negative. [facility]
[2016-10-29] MEDS: CHOLESTYRAMINE (WITH SUGAR) 4 GM PACKET PO SCH (18:17)
[2016-10-29] MEDS: METOPROLOL SUCCINATE (ER) 25 MG TAB.ER.24H PO SCH (20:46)
--- NOTE | 2016-10-29 23:14 | P.PN ---
Subjective Principal diagnosis: Abdominal pain with the recent cholecystectomy. Suspected bile leak 61-year-old female admitted post expiratory laparotomy. Patient at week ago had a cholecystectomy. Patient's the had continued abdominal pain because of which she came back to the hospital. Patient underwent x-ray laparotomy and 2.2 L of bilious fluid was removed and patient probably has sepsis from that. Patient does have leukocytosis. Patient is ALLERGIC to penicillin and patient is presently on 1 25 mL of lactated Ringer's along with metronidazole and levofloxacin which are appropriate antibiotics for intra-abdominal sepsis. Patient is still having a lot of anesthesia denied any symptoms at this point of time although patient is still under influence of anesthesia. On 10/25/2016 Patient is still having abdominal distention and bile drain tube is in place. No fever no chills. Patient will be undergoing ERCP today. No fever no chills. Patient is being continued on IV antibiotics. 10/26/2016 Patient symptomatically improved. No abdominal pain. Patient had ERCP and stent placement due to ductal clamp leak. Patient is being continued on antibiotics. No fever no chills no acute overnight issues 10/27/2016 Patient is improving symptomatically. No fever no chills. No acute overnight issues. Patient is passing flatus. Patient is still nauseous. 10/28/2016 Patient is improving clinically. Able to tolerated liquids. Drain tube is still draining. No fever no chills. No acute overnight issues. No complaints of abdominal pain. Patient has small bowel movement. Objective - Vital Signs Vital signs: Vital Signs Temp 98.7 F 10/28/16 14:42 Pulse 74 10/28/16 16:00 Resp 16 10/28/16 16:00 BP 136/63 10/28/16 14:42 Pulse Ox 97 10/28/16 14:42 Intake & Output 10/28/16 10/28/16 10/29/16 06:59 18:59 06:59 Intake Total 200 440 Output Total 60 60 Balance 140 380 Weight 89.584 kg Intake: IV 200 100 metroNIDAZOLE-NS PMX 500 200 100 mg In Saline 1 100ml.bag @ 100 mls/hr IVPB Q8HR [facility] Rx#:[id number] Intake, IV Titration 100 Amount cefTRIAXone 2,000 mg In 100 Sodium Chloride 0.9% 100 ml @ 100 mls/hr IVPB Q24HR [facility] Rx#:[id number] Oral 240 Output: Drainage 60 60 Left Lower Abdomen 20 20 Right Upper Abdomen 40 40 Other: Voiding Method Toilet Toilet # Voids 3 # Bowel Movements 2 - Exam GENERAL: The patient is alert and oriented x3, not in any acute distress. Well developed, well nourished. HEENT: Pupils are round and equally reacting to light. EOMI. No scleral icterus. No conjunctival pallor. Normocephalic, atraumatic. No pharyngeal erythema. No thyromegaly. CARDIOVASCULAR: S1 and S2 present. No murmurs, rubs, or gallops. PULMONARY: Chest is clear to auscultation, no wheezing or crackles. ABDOMEN: Patient has a biliary drain, abdomen is distended, sluggish bowel sounds. MUSCULOSKELETAL: No joint swelling or deformity. EXTREMITIES: No cyanosis, clubbing, or pedal edema. NEUROLOGICAL: Gross neurological examination did not reveal any focal deficits. SKIN: No rashes. - Labs CBC & Chem 7: 10/28/16 07:15 10/29/16 06:27 Labs: Abnormal Lab Results - Last 24 Hours (Table) 10/28/16 10/28/16 Range/Units 07:15 07:15 WBC 14.6 H (3.8-10.6) k/uL Neutrophils # 12.1 H (1.3-7.7) k/uL Lymphocytes # 0.7 L (1.0-4.8) k/uL Sodium 134 L (137-145) mmol/L Glucose 65 L (74-99) mg/dL Calcium 7.8 L (8.4-10.2) mg/dL Microbiology - Last 24 Hours (Table) 10/25/16 10:45 Blood Culture - Preliminary Blood No Growth after 72 hours Assessment and Plan Plan: 1 sepsis secondary to peritonitis. Secondary to biliary leak. patient is on appropriate antibiotics ceftriaxone and metronidazole. Patient is ALLERGIC to penicillins. Patient is on IV fluids at 1 25 mL per hour. Leukocytosis improving. #2 bile leak through ductal clamp. Status post ERCP and stent placement #2 hyponatremia: Hypervolemic hyponatremia. improved with IV fluids. 3 sleep apnea patient does use CPAP machine at home which will be continued. #4 status post laparotomy and a recent cholecystectomy.: Pain management and DVT prophylaxis per primary service Plan. Patient is tolerating liquid diet slowly. We will continue to monitor closely. Clinically improving. Currently on antibiotics IV. Continue the current management.
--- NOTE | 2016-10-29 23:16 | P.PN ---
Subjective Principal diagnosis: Abdominal pain with the recent cholecystectomy. Suspected bile leak 61-year-old female admitted post expiratory laparotomy. Patient at week ago had a cholecystectomy. Patient's the had continued abdominal pain because of which she came back to the hospital. Patient underwent x-ray laparotomy and 2.2 L of bilious fluid was removed and patient probably has sepsis from that. Patient does have leukocytosis. Patient is ALLERGIC to penicillin and patient is presently on 1 25 mL of lactated Ringer's along with metronidazole and levofloxacin which are appropriate antibiotics for intra-abdominal sepsis. Patient is still having a lot of anesthesia denied any symptoms at this point of time although patient is still under influence of anesthesia. On 10/25/2016 Patient is still having abdominal distention and bile drain tube is in place. No fever no chills. Patient will be undergoing ERCP today. No fever no chills. Patient is being continued on IV antibiotics. 10/26/2016 Patient symptomatically improved. No abdominal pain. Patient had ERCP and stent placement due to ductal clamp leak. Patient is being continued on antibiotics. No fever no chills no acute overnight issues 10/27/2016 Patient is improving symptomatically. No fever no chills. No acute overnight issues. Patient is passing flatus. Patient is still nauseous. 10/28/2016 Patient is improving clinically. Able to tolerated liquids. Drain tube is still draining. No fever no chills. No acute overnight issues. No complaints of abdominal pain. Patient has small bowel movement. 10/29/2016 Patient denied any new complaints today. Still complains nausea no abdominal pain no fever no chills. Hyperbilirubinemia resolved. No chest pain or shortness breath. Tolerating liquid diet slowly. No other acute overnight issues. Objective - Vital Signs Vital signs: Vital Signs Temp 97.7 F 10/29/16 15:00 Pulse 68 10/29/16 20:44 Resp 17 10/29/16 20:44 BP 145/68 10/29/16 20:44 Pulse Ox 97 10/29/16 15:00 Intake & Output 10/29/16 10/29/16 10/30/16 06:59 18:59 06:59 Intake Total 640 240 Output Total 30 30 Balance 610 210 Intake: IV 100 metroNIDAZOLE-NS PMX 500 100 mg In Saline 1 100ml.bag @ 100 mls/hr IVPB Q8HR [facility] Rx#:[id number] Intake, IV Titration 300 Amount IV Fluid Continuation 250 300 ml As IV .[facility] Rx #:[id number] Oral 240 240 Output: Drainage 30 30 Left Lower Abdomen 20 Right Upper Abdomen 30 10 Other: Voiding Method Toilet Toilet # Voids 2 2 # Bowel Movements 1 - Exam GENERAL: The patient is alert and oriented x3, not in any acute distress. Well developed, well nourished. HEENT: Pupils are round and equally reacting to light. EOMI. No scleral icterus. No conjunctival pallor. Normocephalic, atraumatic. No pharyngeal erythema. No thyromegaly. CARDIOVASCULAR: S1 and S2 present. No murmurs, rubs, or gallops. PULMONARY: Chest is clear to auscultation, no wheezing or crackles. ABDOMEN: Patient has a biliary drain, abdomen is distended, sluggish bowel sounds. MUSCULOSKELETAL: No joint swelling or deformity. EXTREMITIES: No cyanosis, clubbing, or pedal edema. NEUROLOGICAL: Gross neurological examination did not reveal any focal deficits. SKIN: No rashes. - Labs CBC & Chem 7: 10/28/16 07:15 10/29/16 06:27 Labs: Abnormal Lab Results - Last 24 Hours (Table) 10/29/16 Range/Units 06:27 Sodium 135 L (137-145) mmol/L Creatinine 0.51 L (0.52-1.04) mg/dL Calcium 7.6 L (8.4-10.2) mg/dL Total Protein 4.2 L (6.3-8.2) g/dL Albumin 2.1 L (3.5-5.0) g/dL Microbiology - Last 24 Hours (Table) 10/25/16 10:45 Blood Culture - Preliminary Blood No Growth after 96 hours Assessment and Plan Plan: 1 sepsis secondary to peritonitis. Secondary to biliary leak. patient is on appropriate antibiotics ceftriaxone and metronidazole. Patient is ALLERGIC to penicillins. Patient is on IV fluids at 1 25 mL per hour. Leukocytosis improving. #2 bile leak through ductal clamp. Status post ERCP and stent placement #2 hyponatremia: Hypervolemic hyponatremia. improved with IV fluids. 3 sleep apnea patient does use CPAP machine at home which will be continued. #4 status post laparotomy and a recent cholecystectomy.: Pain management and DVT prophylaxis Plan. Patient is tolerating liquid diet slowly. We will continue to monitor closely. Clinically improving. Currently on antibiotics IV. Continue the current management.
[2016-10-30] MEDS: HYDROcodone/APAP 7.5-325MG 1 EACH TAB PO PRN (00:24)
[2016-10-30] MEDS: metroNIDAZOLE-NS PMX 500 MG in SALINE 1 100ML.BAG IVPB SCH ×4 (00:25→23:44)
[2016-10-30 07:54] LABS: ALT 34 U/L (9-52); AST 27 U/L (14-36); Alkaline Phosphatase 89 U/L (38-126); Anion Gap 6 mmol/L; Blood Urea Nitrogen 6 mg/dL (7-17); Calcium 7.9 mg/dL (8.4-10.2); Carbon Dioxide 26 mmol/L (22-30); Chloride 104 mmol/L (98-107); Glucose 103 mg/dL (74-99); Non-African American GFR(MDRD) >60 (>60 ml/min/1.73 sqM); Potassium 3.9 mmol/L (3.5-5.1); Sodium 136 mmol/L (137-145); Total Bilirubin 0.6 mg/dL (0.2-1.3); Total Protein 4.6 g/dL (6.3-8.2)
[2016-10-30 08:06] LABS: Basophils # (A) 0.1 k/uL (0-0.2); Basophils % (A) 1 %; CHCM 33.1; Eosinophils # (A) 0.8 k/uL (0-0.7); Eosinophils % (A) 6 %; HCT 37.5 % (34.0-46.0); HDW 2.71; HGB 12.1 gm/dL (11.4-16.0); Luc # (Auto) 0.23; Luc % (Auto) 2; Lymphocytes # (A) 1.2 k/uL (1.0-4.8); Lymphocytes % (A) 8 %; MCH 28.3 pg (25.0-35.0); MCHC 32.2 g/dL (31.0-37.0); MCV 87.9 fL (80.0-100.0); Mean Platelet Volume 7.6; Monocytes # (A) 1.1 k/uL (0-1.0); Monocytes % (A) 8 %; Neutrophils % (A) 77 %; RBC 4.27 m/uL (3.80-5.40); RDW 14.1 % (11.5-15.5); WBC 14.3 k/uL (3.8-10.6); WBC (Perox) 13.91
[2016-10-30] MEDS: HYDROcodone/APAP 5-325MG 1 EACH TAB PO PRN (08:49)
[2016-10-30] MEDS: DOCUSATE 100 MG CAP PO SCH ×2 (08:52→20:18)
[2016-10-30] MEDS: ENOXAPARIN 40 MG/0.4 ML SYRINGE SQ SCH (08:53)
[2016-10-30] MEDS: TIMOLOL 0.5% OPHTH DROPS 5 ML BTL BOTH EYES SCH (08:53)
[2016-10-30] MEDS: FAMOTIDINE 20 MG TAB PO SCH ×2 (08:53→20:18)
[2016-10-30] MEDS: DULoxetine HCL 30 MG CAPSULE.DR PO SCH (08:53)
[2016-10-30] MEDS: CHOLESTYRAMINE (WITH SUGAR) 4 GM PACKET PO SCH ×2 (08:54→17:12)
[2016-10-30] MEDS: cefTRIAXone 2,000 MG in SODIUM CHLORIDE 0.9% 100 ML IVPB SCH (10:21)
--- NOTE | 2016-10-30 10:46 | P.PN ---
Progress Note - Text The patient is being seen for Dr. Vital on rounds today. She was found to have a cystic duct stump leak status post laparoscopic cholecystectomy. Had the ERCP and stent placement and the lap laparotomy with drainage of the biloma. Coming along fairly well. Quite sore.stable. Tolerating liquids. On examination the patient is awake alert uncomfortable. Afebrile. Vitals are stable. She is anicteric. Abdomen is soft. Surgical scars are fine. No evidence of infection. Mild tenderness in the right upper quadrant epigastric area but no guarding or rebound. DAI drains are draining greenish of bilious fluid. Not excessive. Fashion. Stable. Recommendation continued IV fluids antibiotics and close monitoring.
[2016-10-30] MEDS: METOPROLOL SUCCINATE (ER) 25 MG TAB.ER.24H PO SCH (20:18)
--- NOTE | 2016-10-31 01:18 | P.PN ---
Subjective Principal diagnosis: Abdominal pain with the recent cholecystectomy. Suspected bile leak 61-year-old female admitted post expiratory laparotomy. Patient at week ago had a cholecystectomy. Patient's the had continued abdominal pain because of which she came back to the hospital. Patient underwent x-ray laparotomy and 2.2 L of bilious fluid was removed and patient probably has sepsis from that. Patient does have leukocytosis. Patient is ALLERGIC to penicillin and patient is presently on 1 25 mL of lactated Ringer's along with metronidazole and levofloxacin which are appropriate antibiotics for intra-abdominal sepsis. Patient is still having a lot of anesthesia denied any symptoms at this point of time although patient is still under influence of anesthesia. On 10/25/2016 Patient is still having abdominal distention and bile drain tube is in place. No fever no chills. Patient will be undergoing ERCP today. No fever no chills. Patient is being continued on IV antibiotics. 10/26/2016 Patient symptomatically improved. No abdominal pain. Patient had ERCP and stent placement due to ductal clamp leak. Patient is being continued on antibiotics. No fever no chills no acute overnight issues 10/27/2016 Patient is improving symptomatically. No fever no chills. No acute overnight issues. Patient is passing flatus. Patient is still nauseous. 10/28/2016 Patient is improving clinically. Able to tolerated liquids. Drain tube is still draining. No fever no chills. No acute overnight issues. No complaints of abdominal pain. Patient has small bowel movement. 10/29/2016 Patient denied any new complaints today. Still complains nausea no abdominal pain no fever no chills. Hyperbilirubinemia resolved. No chest pain or shortness breath. Tolerating liquid diet slowly. No other acute overnight issues. 10/30/2016 Patient is having mild abdominal pain right upper quadrant today. DAI drain is still place and draining small amount of fluid drainage. No fever no chills. Patient is tolerating diet well and slowly and is improving clinically. Objective - Vital Signs Vital signs: Vital Signs Temp 98.2 F 10/30/16 15:00 Pulse 70 10/30/16 16:00 Resp 18 10/30/16 16:00 BP 121/59 10/30/16 15:00 Pulse Ox 96 10/30/16 15:00 Intake & Output 10/30/16 10/30/16 10/31/16 06:59 18:59 06:59 Intake Total 460 600 Output Total 45 30 Balance 415 600 -30 Weight 89.584 kg Intake: IV 100 100 metroNIDAZOLE-NS PMX 500 100 100 mg In Saline 1 100ml.bag @ 100 mls/hr IVPB Q8HR [facility] Rx#:[id number] Intake, IV Titration 160 100 Amount IV Fluid Continuation 250 160 ml As IV .[facility] Rx #:[id number] cefTRIAXone 2,000 mg In 100 Sodium Chloride 0.9% 100 ml @ 100 mls/hr IVPB Q24HR [facility] Rx#:[id number] Oral 200 400 Output: Drainage 45 30 Left Lower Abdomen 20 10 Right Upper Abdomen 25 20 Other: Voiding Method Toilet Toilet # Voids 2 3 # Bowel Movements 2 2 - Exam GENERAL: The patient is alert and oriented x3, not in any acute distress. Well developed, well nourished. HEENT: Pupils are round and equally reacting to light. EOMI. No scleral icterus. No conjunctival pallor. Normocephalic, atraumatic. No pharyngeal erythema. No thyromegaly. CARDIOVASCULAR: S1 and S2 present. No murmurs, rubs, or gallops. PULMONARY: Chest is clear to auscultation, no wheezing or crackles. ABDOMEN: Patient has a biliary drain, abdomen is distended, sluggish bowel sounds. MUSCULOSKELETAL: No joint swelling or deformity. EXTREMITIES: No cyanosis, clubbing, or pedal edema. NEUROLOGICAL: Gross neurological examination did not reveal any focal deficits. SKIN: No rashes. - Labs CBC & Chem 7: 10/30/16 07:01 10/30/16 07:01 Labs: Abnormal Lab Results - Last 24 Hours (Table) 10/30/16 10/30/16 Range/Units 07:01 07:01 WBC 14.3 H (3.8-10.6) k/uL Plt Count 489 H (150-450) k/uL Neutrophils # 11.0 H (1.3-7.7) k/uL Monocytes # 1.1 H (0-1.0) k/uL Eosinophils # 0.8 H (0-0.7) k/uL Sodium 136 L (137-145) mmol/L BUN 6 L (7-17) mg/dL Creatinine 0.50 L (0.52-1.04) mg/dL Glucose 103 H (74-99) mg/dL Calcium 7.9 L (8.4-10.2) mg/dL Total Protein 4.6 L (6.3-8.2) g/dL Albumin 2.2 L (3.5-5.0) g/dL Microbiology - Last 24 Hours (Table) 10/25/16 10:45 Blood Culture - Preliminary Blood No Growth after 120 hours Assessment and Plan Plan: 1 sepsis secondary to peritonitis. Secondary to biliary leak. patient is on appropriate antibiotics ceftriaxone and metronidazole. Patient is ALLERGIC to penicillins. Patient is on IV fluids at 1 25 mL per hour. Leukocytosis improving. #2 bile leak through ductal clamp. Status post ERCP and stent placement #2 hyponatremia: Hypervolemic hyponatremia. improved with IV fluids. 3 sleep apnea patient does use CPAP machine at home which will be continued. #4 status post laparotomy and a recent cholecystectomy.: Pain management and DVT prophylaxis Plan. Patient is tolerating liquid diet slowly. We will continue to monitor closely. Clinically improving. Currently on antibiotics IV. Continue the current management.
--- NOTE | 2016-10-31 07:45 | PN ---
DATE OF SERVICE: 10/30/16 REASON FOR FOLLOW UP: Secondary peritonitis. INTERVAL HISTORY: The patient is afebrile. She is breathing comfortably. Did have some mild abdominal pain. Some nausea but no vomiting. Still has some diarrhea. She did like the taste of the Questran. On examination, blood pressure 121/59 with a pulse of 70. Temperature 98.2. She is 96% on room air. General description is a middle aged female up in the bed in no distress. Respiratory system unlabored breathing. Decreased breath sounds at the base. Heart S1, S2 regular rate and rhythm. Abdomen soft. No tenderness. LABS: Hemoglobin 12.1, white count 14.3. BUN 6, creatinine 0.50. DIAGNOSTIC IMPRESSION AND PLAN: The patient with secondary peritonitis from a biliary leak status post drainage of the ( ) and biliary stent placement. Currently on Rocephin and Flagyl will be continued. Continue with Questran for symptomatic relief ( ) probiotic intake. MTDD
[2016-10-31 07:51] LABS: ALT 37 U/L (9-52); AST 28 U/L (14-36); Alkaline Phosphatase 79 U/L (38-126); Anion Gap 6 mmol/L; Blood Urea Nitrogen 4 mg/dL (7-17); Calcium 7.9 mg/dL (8.4-10.2); Carbon Dioxide 25 mmol/L (22-30); Chloride 104 mmol/L (98-107); Glucose 85 mg/dL (74-99); Non-African American GFR(MDRD) >60 (>60 ml/min/1.73 sqM); Potassium 3.9 mmol/L (3.5-5.1); Sodium 135 mmol/L (137-145); Total Bilirubin 0.6 mg/dL (0.2-1.3); Total Protein 4.4 g/dL (6.3-8.2)
[2016-10-31] MEDS: metroNIDAZOLE-NS PMX 500 MG in SALINE 1 100ML.BAG IVPB SCH ×3 (08:01→23:25)
[2016-10-31] MEDS: DULoxetine HCL 30 MG CAPSULE.DR PO SCH (08:04)
[2016-10-31] MEDS: TIMOLOL 0.5% OPHTH DROPS 5 ML BTL BOTH EYES SCH (08:04)
[2016-10-31] MEDS: FAMOTIDINE 20 MG TAB PO SCH ×2 (08:04→20:57)
[2016-10-31] MEDS: ENOXAPARIN 40 MG/0.4 ML SYRINGE SQ SCH (08:04)
[2016-10-31] MEDS: DOCUSATE 100 MG CAP PO SCH ×2 (08:04→20:57)
[2016-10-31] MEDS: CHOLESTYRAMINE (WITH SUGAR) 4 GM PACKET PO SCH ×3 (08:05→15:59)
[2016-10-31] MEDS: cefTRIAXone 2,000 MG in SODIUM CHLORIDE 0.9% 100 ML IVPB SCH (09:28)
[2016-10-31] MEDS: METOCLOPRAMIDE 5 MG/ML 2 ML VIAL IVP PRN (12:19)
--- NOTE | 2016-10-31 12:29 | P.PN ---
Progress Note - Text The patient is fairly stable. Feels very weak. Eating small amounts. No appetite yet. Denies nausea or vomiting however. On examination the patient is afebrile awake alert the. In no acute distress. Temperature is normal. Abdomen is soft with mild diffuse tenderness but no guarding or rebound. DAI drain output a much improved and less progressively.. Still greenish bilious in nature. Impression slowly improving cystic duct stump leak status post stent placement and a laparotomy for drainage of the biloma and fluid. Recommendation. Soft diet. Encourage ambulation. Hopefully discharge in the next day or 2.
[2016-10-31] MEDS: METOPROLOL SUCCINATE (ER) 25 MG TAB.ER.24H PO SCH (20:57)
[2016-10-31] MEDS: HYDROcodone/APAP 7.5-325MG 1 EACH TAB PO PRN (21:01)
--- NOTE | 2016-11-01 01:34 | P.PN ---
Subjective Principal diagnosis: Abdominal pain with the recent cholecystectomy. Suspected bile leak 61-year-old female admitted post expiratory laparotomy. Patient at week ago had a cholecystectomy. Patient's the had continued abdominal pain because of which she came back to the hospital. Patient underwent x-ray laparotomy and 2.2 L of bilious fluid was removed and patient probably has sepsis from that. Patient does have leukocytosis. Patient is ALLERGIC to penicillin and patient is presently on 1 25 mL of lactated Ringer's along with metronidazole and levofloxacin which are appropriate antibiotics for intra-abdominal sepsis. Patient is still having a lot of anesthesia denied any symptoms at this point of time although patient is still under influence of anesthesia. On 10/25/2016 Patient is still having abdominal distention and bile drain tube is in place. No fever no chills. Patient will be undergoing ERCP today. No fever no chills. Patient is being continued on IV antibiotics. 10/26/2016 Patient symptomatically improved. No abdominal pain. Patient had ERCP and stent placement due to ductal clamp leak. Patient is being continued on antibiotics. No fever no chills no acute overnight issues 10/27/2016 Patient is improving symptomatically. No fever no chills. No acute overnight issues. Patient is passing flatus. Patient is still nauseous. 10/28/2016 Patient is improving clinically. Able to tolerated liquids. Drain tube is still draining. No fever no chills. No acute overnight issues. No complaints of abdominal pain. Patient has small bowel movement. 10/29/2016 Patient denied any new complaints today. Still complains nausea no abdominal pain no fever no chills. Hyperbilirubinemia resolved. No chest pain or shortness breath. Tolerating liquid diet slowly. No other acute overnight issues. 10/30/2016 Patient is having mild abdominal pain right upper quadrant today. DAI drain is still place and draining small amount of fluid drainage. No fever no chills. Patient is tolerating diet well and slowly and is improving clinically. 10/31/2016 Patient's abdominal pain improved. No fever no chills. Tolerating liquid diet. No complaints of chest pain or short of breath Objective - Vital Signs Vital signs: Vital Signs Temp 98.1 F 10/31/16 20:35 Pulse 67 10/31/16 20:35 Resp 16 10/31/16 20:35 BP 120/54 10/31/16 20:35 Pulse Ox 99 10/31/16 20:35 Intake & Output 10/31/16 10/31/16 11/01/16 06:59 18:59 06:59 Intake Total 340 240 200 Output Total 30 510 Balance 310 -270 200 Intake: IV 200 metroNIDAZOLE-NS PMX 500 200 mg In Saline 1 100ml.bag @ 100 mls/hr IVPB Q8HR [facility] Rx#:[id number] Intake, IV Titration 140 Amount IV Fluid Continuation 250 140 ml As IV .[facility] Rx #:[id number] Oral 240 200 Output: Drainage 30 10 Left Lower Abdomen 10 Right Upper Abdomen 20 10 Urine 500 Other: Voiding Method Toilet Toilet # Voids 2 2 1 - Exam GENERAL: The patient is alert and oriented x3, not in any acute distress. Well developed, well nourished. HEENT: Pupils are round and equally reacting to light. EOMI. No scleral icterus. No conjunctival pallor. Normocephalic, atraumatic. No pharyngeal erythema. No thyromegaly. CARDIOVASCULAR: S1 and S2 present. No murmurs, rubs, or gallops. PULMONARY: Chest is clear to auscultation, no wheezing or crackles. ABDOMEN: Patient has a biliary drain, abdomen is distended, sluggish bowel sounds. MUSCULOSKELETAL: No joint swelling or deformity. EXTREMITIES: No cyanosis, clubbing, or pedal edema. NEUROLOGICAL: Gross neurological examination did not reveal any focal deficits. SKIN: No rashes. - Labs CBC & Chem 7: 10/30/16 07:01 10/31/16 07:12 Labs: Abnormal Lab Results - Last 24 Hours (Table) 10/31/16 Range/Units 07:12 Sodium 135 L (137-145) mmol/L BUN 4 L (7-17) mg/dL Creatinine 0.48 L (0.52-1.04) mg/dL Calcium 7.9 L (8.4-10.2) mg/dL Total Protein 4.4 L (6.3-8.2) g/dL Albumin 2.2 L (3.5-5.0) g/dL Microbiology - Last 24 Hours (Table) 10/25/16 10:45 Blood Culture - Final Blood No Growth after 144 hours Assessment and Plan Plan: 1 sepsis secondary to peritonitis. Secondary to biliary leak. patient is on appropriate antibiotics ceftriaxone and metronidazole. Patient is ALLERGIC to penicillins. Patient is on IV fluids at 1 25 mL per hour. Leukocytosis improving. #2 bile leak through ductal clamp. Status post ERCP and stent placement #2 hyponatremia: Hypervolemic hyponatremia. improved with IV fluids. 3 sleep apnea patient does use CPAP machine at home which will be continued. #4 status post laparotomy and a recent cholecystectomy.: Pain management and DVT prophylaxis Plan. Patient is tolerating liquid diet slowly. We will continue to monitor closely. Clinically improving. Currently on antibiotics IV. Continue the current management.
[2016-11-01] MEDS: METOCLOPRAMIDE 5 MG/ML 2 ML VIAL IVP PRN (06:28)
[2016-11-01] MEDS: metroNIDAZOLE-NS PMX 500 MG in SALINE 1 100ML.BAG IVPB SCH ×2 (07:05→15:30)
[2016-11-01] MEDS: FAMOTIDINE 20 MG TAB PO SCH ×2 (07:08→21:45)
[2016-11-01] MEDS: ENOXAPARIN 40 MG/0.4 ML SYRINGE SQ SCH (07:09)
[2016-11-01] MEDS: TIMOLOL 0.5% OPHTH DROPS 5 ML BTL BOTH EYES SCH (07:09)
[2016-11-01] MEDS: DULoxetine HCL 30 MG CAPSULE.DR PO SCH (07:09)
[2016-11-01] MEDS: CHOLESTYRAMINE (WITH SUGAR) 4 GM PACKET PO SCH ×2 (07:10→17:15)
[2016-11-01] MEDS: HYDROcodone/APAP 5-325MG 1 EACH TAB PO PRN ×3 (07:22→19:05)
[2016-11-01 08:04] LABS: Anion Gap 9 mmol/L; Blood Urea Nitrogen 4 mg/dL (7-17); Calcium 7.8 mg/dL (8.4-10.2); Carbon Dioxide 25 mmol/L (22-30); Chloride 101 mmol/L (98-107); Glucose 74 mg/dL (74-99); Non-African American GFR(MDRD) >60 (>60 ml/min/1.73 sqM); Potassium 3.8 mmol/L (3.5-5.1); Sodium 135 mmol/L (137-145)
--- NOTE | 2016-11-01 08:08 | PN ---
DATE OF SERVICE: 10/31/2016 REASON FOR FOLLOW UP: Secondary peritonitis. INTERVAL HISTORY: The patient is afebrile. He is breathing comfortably. ( ) some diarrhea. No nausea, no vomiting. No significant chest pain. No shortness of breath or cough. On examination blood pressure 120/54 with pulse of 67, temperature 98.1. She is 99% on room air. GENERAL DESCRIPTION: Middle-aged female lying in bed in no distress. RESPIRATORY: Unlabored breathing. Clear to auscultation anteriorly. HEART: S1/S2 regular. ABDOMEN: Soft. No significant tenderness. LABS: BUN 4 with creatinine of 0.48. Blood cultures have been negative. DIAGNOSTIC IMPRESSION: Patient with secondary peritonitis from a biliary leak. Patient seems to have shown slow clinical improvement. Will continue Rocephin and Flagyl. He has been advised to Questran and decrease her probiotic intake to help with the diarrhea. Continue supportive care. MTDD
[2016-11-01 08:29] LABS: Basophils # (A) 0.1 k/uL (0-0.2); Basophils % (A) 1 %; CHCM 32.7; Eosinophils # (A) 0.7 k/uL (0-0.7); Eosinophils % (A) 5 %; HCT 35.4 % (34.0-46.0); HDW 2.82; HGB 11.6 gm/dL (11.4-16.0); Luc # (Auto) 0.21; Luc % (Auto) 2; Lymphocytes % (A) 8 %; MCH 28.1 pg (25.0-35.0); MCHC 32.7 g/dL (31.0-37.0); MCV 86.1 fL (80.0-100.0); Mean Platelet Volume 6.9; Monocytes % (A) 8 %; Neutrophils # (A) 10.4 k/uL (1.3-7.7); Neutrophils % (A) 77 %; RBC 4.11 m/uL (3.80-5.40); RDW 13.6 % (11.5-15.5); WBC 13.5 k/uL (3.8-10.6); WBC (Perox) 13.98
[2016-11-01] MEDS: DOCUSATE 100 MG CAP PO SCH ×2 (09:33→21:45)
[2016-11-01] MEDS: cefTRIAXone 2,000 MG in SODIUM CHLORIDE 0.9% 100 ML IVPB SCH (09:58)
--- NOTE | 2016-11-01 16:06 | P.PN ---
<Josefina Fernandez Sophia - Last Filed: 11/01/16 15:53> Subjective 61-year-old female being seen on rounds currently resting in bed. Patient states she has been up ambulating in the noon[place] patient states appetite is improving. This been no nausea vomiting. Patient states had one loose stool the day before. Urinating with no difficulty. No shortness of breath or chest pain. status post ERCP with biliary stent placement for biliary leak done by GI service. Patient underwent a recent laparoscopic cholecystectomy done on October 15 returned to the emergency room on October 24 with abdominal pain CAT scan obtained showed interabdominal fluid considerable ascites or a possible bile leak. Patient initially was transferred from another facility to [facility]. . Patient is status post diagnostic laparoscopic drainage of biloma with 2 Melquiades-Toscano drains placed . Patient underwent on the on October [address] Bass ERCP with a biliary stent Objective - Vital Signs Vital signs: Vital Signs Temp 97.7 F 11/01/16 07:00 Pulse 69 11/01/16 08:00 Resp 16 11/01/16 08:00 BP 151/69 11/01/16 07:00 Pulse Ox 95 11/01/16 07:00 Intake & Output 10/31/16 11/01/16 11/01/16 18:59 06:59 18:59 Intake Total 240 300 640 Output Total 510 Balance -270 300 640 Weight 89.584 kg Intake: IV 100 100 metroNIDAZOLE-NS PMX 500 100 100 mg In Saline 1 100ml.bag @ 100 mls/hr IVPB Q8HR BETTY Rx#:[id number] Intake, IV Titration 100 Amount cefTRIAXone 2,000 mg In 100 Sodium Chloride 0.9% 100 ml @ 100 mls/hr IVPB Q24HR BETTY Rx#:[id number] Oral 240 200 440 Output: Drainage 10 Right Upper Abdomen 10 Urine 500 Other: Voiding Method Toilet Toilet Toilet # Voids 2 1 2 - Exam Physical exam 61-year-old female sitting up in bed appears in no acute distress Lungs essentially clear adequate air movement on room air Heart S1-S2 audible regular Abdomen abdominal binder in place soft not distended 2 DAI drains and scant amount of drainage no bowel movement today states had a bowel movement the day before urinating no difficulty no reports of nausea vomiting and tolerating a diet Extremities no edema noted - Labs CBC & Chem 7: 11/01/16 07:05 11/01/16 07:05 Labs: Abnormal Lab Results - Last 24 Hours (Table) 11/01/16 11/01/16 Range/Units 07:05 07:05 WBC 13.5 H (3.8-10.6) k/uL Plt Count 480 H (150-450) k/uL Neutrophils # 10.4 H (1.3-7.7) k/uL Sodium 135 L (137-145) mmol/L BUN 4 L (7-17) mg/dL Calcium 7.8 L (8.4-10.2) mg/dL Microbiology - Last 24 Hours (Table) 10/25/16 10:45 Blood Culture - Final Blood No Growth after 144 hours Assessment and Plan Plan: Impression A recent laparoscopic cholecystectomy 10/15/2016 Biliary leak following recent laparoscopic cholecystectomy status post ERCP with biliary stent placed on October 25 present on admission abdominal pain suspect due to biliary leak Present on admission sepsis suspect due to a biliary leak Present on admission hyponatremia History of sleep apnea with CPAP therapy Status post October 24 evacuation of biloma with drain placement, exploratory laparotomy, diagnostic laparotomy for abdominal pain Plan Continue postop surgical care as ordered Increase activity Pain control DVT and GI prophylaxis Monitor labs IV Rocephin and Flagyl as ordered Resume home meds as appropriate Prepped for discharge soon Josefina Fernandez dictating for Dr. kunz covering for Dr. weathers The above impression and plan of care have been discussed and directed by signing physician. Josefina Fernandez nurse practitioner acting as scribe for signing physician. <Giovani Kunz - Last Filed: 11/01/16 18:36> Objective - Vital Signs Vital signs: Vital Signs Temp 98.2 F 11/01/16 15:00 Pulse 63 11/01/16 16:00 Resp 16 11/01/16 16:00 BP 151/72 11/01/16 15:00 Pulse Ox 97 11/01/16 15:00 Intake & Output 10/31/16 11/01/16 11/01/16 18:59 06:59 18:59 Intake Total 240 300 640 Output Total 510 Balance -270 300 640 Weight 89.584 kg Intake: IV 100 100 metroNIDAZOLE-NS PMX 500 100 100 mg In Saline 1 100ml.bag @ 100 mls/hr IVPB Q8HR BETTY Rx#:[id number] Intake, IV Titration 100 Amount cefTRIAXone 2,000 mg In 100 Sodium Chloride 0.9% 100 ml @ 100 mls/hr IVPB Q24HR BETTY Rx#:[id number] Oral 240 200 440 Output: Drainage 10 Right Upper Abdomen 10 Urine 500 Other: Voiding Method Toilet Toilet Toilet # Voids 2 1 2 - Labs CBC & Chem 7: 11/01/16 07:05 11/01/16 07:05 Labs: Abnormal Lab Results - Last 24 Hours (Table) 11/01/16 11/01/16 Range/Units 07:05 07:05 WBC 13.5 H (3.8-10.6) k/uL Plt Count 480 H (150-450) k/uL Neutrophils # 10.4 H (1.3-7.7) k/uL Sodium 135 L (137-145) mmol/L BUN 4 L (7-17) mg/dL Calcium 7.8 L (8.4-10.2) mg/dL Assessment and Plan Plan: As above. Patient doing gradually better. She states her fatigue is improving. She is doing better with her diet at this point. Both DAI drains with significant decrease in output. Only scant bile appearance at this point. Mostly serosanguineous. We'll reevaluate tomorrow for possible discharge.
[2016-11-01 21:33] VITALS: RESP 18
[2016-11-01] MEDS: METOPROLOL SUCCINATE (ER) 25 MG TAB.ER.24H PO SCH (21:45)
[2016-11-01] MEDS: metroNIDAZOLE 500 MG TAB PO SCH (21:45)
[2016-11-01] MEDS ORDERED: metroNIDAZOLE 500 MG TAB PO SCH (22:00)
--- NOTE | 2016-11-01 23:49 | P.PN ---
Subjective Principal diagnosis: Abdominal pain with the recent cholecystectomy. Suspected bile leak 61-year-old female admitted post expiratory laparotomy. Patient at week ago had a cholecystectomy. Patient's the had continued abdominal pain because of which she came back to the hospital. Patient underwent x-ray laparotomy and 2.2 L of bilious fluid was removed and patient probably has sepsis from that. Patient does have leukocytosis. Patient is ALLERGIC to penicillin and patient is presently on 1 25 mL of lactated Ringer's along with metronidazole and levofloxacin which are appropriate antibiotics for intra-abdominal sepsis. Patient is still having a lot of anesthesia denied any symptoms at this point of time although patient is still under influence of anesthesia. On 10/25/2016 Patient is still having abdominal distention and bile drain tube is in place. No fever no chills. Patient will be undergoing ERCP today. No fever no chills. Patient is being continued on IV antibiotics. 10/26/2016 Patient symptomatically improved. No abdominal pain. Patient had ERCP and stent placement due to ductal clamp leak. Patient is being continued on antibiotics. No fever no chills no acute overnight issues 10/27/2016 Patient is improving symptomatically. No fever no chills. No acute overnight issues. Patient is passing flatus. Patient is still nauseous. 10/28/2016 Patient is improving clinically. Able to tolerated liquids. Drain tube is still draining. No fever no chills. No acute overnight issues. No complaints of abdominal pain. Patient has small bowel movement. 10/29/2016 Patient denied any new complaints today. Still complains nausea no abdominal pain no fever no chills. Hyperbilirubinemia resolved. No chest pain or shortness breath. Tolerating liquid diet slowly. No other acute overnight issues. 10/30/2016 Patient is having mild abdominal pain right upper quadrant today. DAI drain is still place and draining small amount of fluid drainage. No fever no chills. Patient is tolerating diet well and slowly and is improving clinically. 10/31/2016 Patient's abdominal pain improved. No fever no chills. Tolerating liquid diet. No complaints of chest pain or short of breath 11/01/2016 Patient states that her abdominal pain is getting better. Nauseated. No episodes of vomiting. Tolerating liquid diet. Drain tube is still draining small amount of serosanguineous fluid. No fever no chills. Otherwise no acute overnight issues. Objective - Vital Signs Vital signs: Vital Signs Temp 98.2 F 11/01/16 15:00 Pulse 63 11/01/16 16:00 Resp 16 11/01/16 16:00 BP 151/72 11/01/16 15:00 Pulse Ox 97 11/01/16 15:00 Intake & Output 11/01/16 11/01/16 11/02/16 06:59 18:59 06:59 Intake Total 300 640 Balance 300 640 Weight 89.584 kg Intake: IV 100 100 metroNIDAZOLE-NS PMX 500 100 100 mg In Saline 1 100ml.bag @ 100 mls/hr IVPB Q8HR BETTY Rx#:[id number] Intake, IV Titration 100 Amount cefTRIAXone 2,000 mg In 100 Sodium Chloride 0.9% 100 ml @ 100 mls/hr IVPB Q24HR BETTY Rx#:[id number] Oral 200 440 Other: Voiding Method Toilet Toilet # Voids 1 2 - Exam GENERAL: The patient is alert and oriented x3, not in any acute distress. Well developed, well nourished. HEENT: Pupils are round and equally reacting to light. EOMI. No scleral icterus. No conjunctival pallor. Normocephalic, atraumatic. No pharyngeal erythema. No thyromegaly. CARDIOVASCULAR: S1 and S2 present. No murmurs, rubs, or gallops. PULMONARY: Chest is clear to auscultation, no wheezing or crackles. ABDOMEN: Patient has a biliary drain, abdomen is distended, sluggish bowel sounds. MUSCULOSKELETAL: No joint swelling or deformity. EXTREMITIES: No cyanosis, clubbing, or pedal edema. NEUROLOGICAL: Gross neurological examination did not reveal any focal deficits. SKIN: No rashes. - Labs CBC & Chem 7: 11/01/16 07:05 11/01/16 07:05 Labs: Abnormal Lab Results - Last 24 Hours (Table) 11/01/16 11/01/16 Range/Units 07:05 07:05 WBC 13.5 H (3.8-10.6) k/uL Plt Count 480 H (150-450) k/uL Neutrophils # 10.4 H (1.3-7.7) k/uL Sodium 135 L (137-145) mmol/L BUN 4 L (7-17) mg/dL Calcium 7.8 L (8.4-10.2) mg/dL Assessment and Plan Plan: 1 sepsis secondary to peritonitis. Secondary to biliary leak. patient is on appropriate antibiotics ceftriaxone and metronidazole. Patient is ALLERGIC to penicillins. Patient is on IV fluids at 1 25 mL per hour. Leukocytosis improving. #2 bile leak through ductal clamp. Status post ERCP and stent placement #2 hyponatremia: Hypervolemic hyponatremia. improved with IV fluids. 3 sleep apnea patient does use CPAP machine at home which will be continued. #4 status post laparotomy and a recent cholecystectomy.: Pain management and DVT prophylaxis Plan. Patient is tolerating liquid diet and encourage ambulation. We will continue to monitor closely. Clinically improving. Currently on antibiotics IV. Continue the current management.
[2016-11-02 06:20] LABS: Glucose,Whole Blood 80 mg/dL (75-99)
[2016-11-02] MEDS: HYDROcodone/APAP 5-325MG 1 EACH TAB PO PRN ×2 (07:12→13:19)
[2016-11-02] MEDS: cefTRIAXone 2,000 MG in SODIUM CHLORIDE 0.9% 100 ML IVPB SCH (07:13)
[2016-11-02] MEDS: ENOXAPARIN 40 MG/0.4 ML SYRINGE SQ SCH (07:17)
[2016-11-02] MEDS: DOCUSATE 100 MG CAP PO SCH (07:17)
[2016-11-02] MEDS: FAMOTIDINE 20 MG TAB PO SCH (07:17)
[2016-11-02] MEDS: DULoxetine HCL 30 MG CAPSULE.DR PO SCH (07:17)
[2016-11-02] MEDS: CHOLESTYRAMINE (WITH SUGAR) 4 GM PACKET PO SCH (07:18)
[2016-11-02] MEDS: TIMOLOL 0.5% OPHTH DROPS 5 ML BTL BOTH EYES SCH (07:18)
[2016-11-02] MEDS: metroNIDAZOLE 500 MG TAB PO SCH (07:18)
[2016-11-02 07:27] LABS: Basophils # (A) 0.1 k/uL (0-0.2); Basophils % (A) 0 %; Eosinophils % (A) 6 %; HCT 35.7 % (34.0-46.0); HDW 2.78; HGB 11.4 gm/dL (11.4-16.0); Luc % (Auto) 2; Lymphocytes # (A) 1.1 k/uL (1.0-4.8); Lymphocytes % (A) 7 %; MCH 28.2 pg (25.0-35.0); MCHC 31.9 g/dL (31.0-37.0); MCV 88.3 fL (80.0-100.0); Mean Platelet Volume 7.2; Monocytes # (A) 1.4 k/uL (0-1.0); Monocytes % (A) 9 %; Neutrophils % (A) 75 %; RBC 4.04 m/uL (3.80-5.40); RDW 14.2 % (11.5-15.5); WBC 14.8 k/uL (3.8-10.6); WBC (Perox) 15.16
[2016-11-02 07:44] LABS: ALT 32 U/L (9-52); AST 26 U/L (14-36); Alkaline Phosphatase 84 U/L (38-126); Anion Gap 8 mmol/L; Blood Urea Nitrogen 3 mg/dL (7-17); Calcium 7.8 mg/dL (8.4-10.2); Carbon Dioxide 26 mmol/L (22-30); Chloride 101 mmol/L (98-107); Glucose 80 mg/dL (74-99); Non-African American GFR(MDRD) >60 (>60 ml/min/1.73 sqM); Potassium 3.9 mmol/L (3.5-5.1); Sodium 135 mmol/L (137-145); Total Bilirubin 0.7 mg/dL (0.2-1.3); Total Protein 4.9 g/dL (6.3-8.2)
[2016-11-02 07:53] VITALS: BP 156/72; PULSE 66; TEMP 98.1
[2016-11-02] MEDS ORDERED: FLUCONAZOLE 100 MG TAB PO ONE (11:16)
--- NOTE | 2016-11-02 12:32 | P.DS ---
<Josefina Fernandez M - Last Filed: 11/02/16 12:10> Providers Date of admission: 10/24/16 06:32 Expected date of discharge: 11/02/16 Attending physician: Joseph Weathers Consults: 10/24/16 13:56 Consult Physician Routine Consulting Provider: Arlene Monet Consult Reason/Comments: Leukocytosis, bile leak Do you want consulting provider notified?: Yes Consult Physician Routine Consulting Provider: Charo Chou Consult Reason/Comments: Medical management Do you want consulting provider notified?: Yes Primary care physician: Leela Correia [facility] Hospital Course: 61-year-old female who was transferred from [place] patient was being seen at the facility for increased abdominal pain. Patient is status post 10/15/2016 laparoscopic cholecystectomy performed here at [facility] by dr weathers.. Patient stated that she felt mild to moderate abdominal pain after the surgery. She stated that on the day of the admission to the emergency room at the at the facility the pain was worse was actually severe intolerable. She stated it was across the upper abdomen. Described as a constant bloating sensation. Patient stated that she did receive analgesics at the other hospital there was no relief. Patient was transferred [place] where. Patient did have a CAT scan of the abdomen pelvis showed intra-abdominal fluid with the consideration of ascites possible bile leak most of the fluid was not in the gallbladder fossa. did see the patient. Patient underwent on October 24 diagnostic laparoscopic exploratory laparotomy evacuation of biloma with drain placement for biloma. A GI consultation was requested for the biliary leak following a recent cholecystectomy. Patient was seen by Dr. Bass and on October 25 underwent Endoscopic retrograde cholangiography with sphincterotomy for the placement of a biliary stent Patient was started on IV antibiotics under the guidance of infectious disease Dr. Monet who did participate in the plan of care. The diet was advanced labs were monitored closely in the AST and ALT were not elevated. Patient's pain was controlled on the day of discharge patient was felt to be appropriate to proceed with the plan the patient will follow-up in the outpatient setting Impression A recent laparoscopic cholecystectomy 10/15/2016 Biliary leak following recent laparoscopic cholecystectomy status post ERCP with biliary stent placed on October 25 present on admission abdominal pain suspect due to biliary leak Present on admission sepsis febrile leukocytosis suspect due to a biliary leak Present on admission hyponatremia History of sleep apnea with CPAP therapy Status post October 24 evacuation of biloma with drain placement, exploratory laparotomy, diagnostic laparotomy for abdominal pain Josefina Fernandez dictating for Dr. kunz covering for Dr. weathers The above impression and plan of care have been discussed and directed by signing physician. Josefina Fernandez nurse practitioner acting as scribe for signing physician. Patient Condition at Discharge: Fair Plan - Discharge Summary New Discharge Prescriptions: New Cefuroxime Axetil [Ceftin] 500 mg PO BID #14 tab Fluconazole [Diflucan] 200 mg PO DAILY #7 tab Continue DULoxetine HCL [Cymbalta] 30 mg PO DAILY Metoprolol Succinate [Toprol XL] 25 mg PO HS Timolol [Betimol 0.5% Ophth Soln] 1 drop BOTH EYES QAM Calcium Citrate 2 tab PO DAILY Multivitamin [Multivitamins Adult Gummies] 1 tab PO DAILY Docusate [Colace] 100 mg PO BID #20 capsule Acetaminophen [Tylenol] 650 mg PO Q8H PRN PRN Reason: Pain HYDROcodone/APAP 7.5-325MG [[place] 7.5-325] 1 tab PO Q4H PRN #30 PRN Reason: Pain Discharge Medication List Calcium Citrate 2 tab PO DAILY 09/17/16 [History] DULoxetine HCL [Cymbalta] 30 mg PO DAILY 09/17/16 [History] Metoprolol Succinate [Toprol XL] 25 mg PO HS 09/17/16 [History] Multivitamin [Multivitamins Adult Gummies] 1 tab PO DAILY 09/17/16 [History] Timolol [Betimol 0.5% Ophth Soln] 1 drop BOTH EYES QAM 09/17/16 [History] Docusate [Colace] 100 mg PO BID #20 capsule 10/15/16 [Rx] Acetaminophen [Tylenol] 650 mg PO Q8H PRN 10/24/16 [History] Cefuroxime Axetil [Ceftin] 500 mg PO BID #14 tab 11/02/16 [Rx] Fluconazole [Diflucan] 200 mg PO DAILY #7 tab 11/02/16 [Rx] HYDROcodone/APAP 7.5-325MG [[place] 7.5-325] 1 tab PO Q4H PRN #30 11/02/16 [Rx] Follow up Appointment(s)/Referral(s): Nasr,Pranav, MD [STAFF PHYSICIAN] - 4 Weeks (biliary stent removal ) Violetataff,Physician [REFERRING] - 1-2 days Joseph Weathers MD [STAFF PHYSICIAN] - 11/11/16 2:15 pm Activity/Diet/Wound Care/Special Instructions: No lifting over 10 pounds Sitting in a tub pool May shower Call the surgical attending if there's any abdominal pain redness at the surgical sites, Notify the surgical attending if any fever chills Discharge Disposition: HOME SELF-CARE <Giovani Kunz - Last Filed: 11/02/16 12:43> Hospital Course: As above. Stable for discharge. Drains will be left in place until follow-up with Dr. Weathers. Antibiotics per infectious disease post discharge.
--- NOTE | 2016-11-02 16:38 | PN ---
DATE OF SERVICE: 11/01/2016 REASON FOR FOLLOWUP: Secondary peritonitis from a biliary leak. INTERVAL HISTORY: The patient is afebrile. She is breathing comfortably. Her abdominal pain seems to have improved. Overall output in the DAI drain has decreased. Denies chest pain, shortness of breath or cough, and her diarrhea seems to have resolved. On examination, blood pressure is 151/72 with a pulse of 63, temperature 98.2. She is 97% on room air. General description is a middle-aged female lying in bed in no distress. RESPIRATORY SYSTEM: Unlabored breathing. Clear to auscultation anteriorly. HEART: S1, S2. Regular rate and rhythm. ABDOMEN: Soft. Mildly distended. DAI drain has minimal biliary secretions. LABS: Hemoglobin is 11.6 with white count of 13.5 with a BUN of 4, creatinine 0.52. Blood culture has been negative. DIAGNOSTIC IMPRESSION AND PLAN: Patient with secondary peritonitis from a biliary leak, status post drainage of biloma and ERCP with stent placement. So far the cultures are negative. White count is slowly coming down. No fever on Rocephin and Flagyl. Finish therapy with a short course of oral Ceftin and Flagyl with outpatient followup. MTDD
--- NOTE | 2016-11-02 21:20 | PN ---
DATE OF SERVICE: 11/02/16 REASON FOR FOLLOW UP: Secondary peritonitis from a biliary leak. INTERVAL HISTORY: The patient is afebrile. She is feeling better. Her abdominal pain has improved. There is output in the DAI drainage. No diarrhea. No nausea or vomiting. On examination, blood pressure 156/72 with a pulse of 56. Temperature 98.1. She is 95% on room air. General description is a middle aged female up in the bed in no distress. Respiratory system unlabored breathing. Clear to auscultation anteriorly. Heart S1, S2 regular rate and rhythm. Abdomen soft. No tenderness. DAI drain is with minimal secretions. LABS: White count elevated at 14.8. Cultures have been negative. DIAGNOSTIC IMPRESSION AND PLAN: The patient with secondary peritonitis ( ) from a biliary leak status post drainage of the biloma and ( ). Plan at this time is to ( ) Diflucan with discharge antibiotic in the form of oral Ceftin and Flagyl for about a week with outpatient follow-up. YANNA
--- NOTE | 2016-11-02 22:48 | P.PN ---
Subjective Principal diagnosis: Abdominal pain with the recent cholecystectomy. Suspected bile leak 61-year-old female admitted post expiratory laparotomy. Patient at week ago had a cholecystectomy. Patient's the had continued abdominal pain because of which she came back to the hospital. Patient underwent x-ray laparotomy and 2.2 L of bilious fluid was removed and patient probably has sepsis from that. Patient does have leukocytosis. Patient is ALLERGIC to penicillin and patient is presently on 1 25 mL of lactated Ringer's along with metronidazole and levofloxacin which are appropriate antibiotics for intra-abdominal sepsis. Patient is still having a lot of anesthesia denied any symptoms at this point of time although patient is still under influence of anesthesia. On 10/25/2016 Patient is still having abdominal distention and bile drain tube is in place. No fever no chills. Patient will be undergoing ERCP today. No fever no chills. Patient is being continued on IV antibiotics. 10/26/2016 Patient symptomatically improved. No abdominal pain. Patient had ERCP and stent placement due to ductal clamp leak. Patient is being continued on antibiotics. No fever no chills no acute overnight issues 10/27/2016 Patient is improving symptomatically. No fever no chills. No acute overnight issues. Patient is passing flatus. Patient is still nauseous. 10/28/2016 Patient is improving clinically. Able to tolerated liquids. Drain tube is still draining. No fever no chills. No acute overnight issues. No complaints of abdominal pain. Patient has small bowel movement. 10/29/2016 Patient denied any new complaints today. Still complains nausea no abdominal pain no fever no chills. Hyperbilirubinemia resolved. No chest pain or shortness breath. Tolerating liquid diet slowly. No other acute overnight issues. 10/30/2016 Patient is having mild abdominal pain right upper quadrant today. DAI drain is still place and draining small amount of fluid drainage. No fever no chills. Patient is tolerating diet well and slowly and is improving clinically. 10/31/2016 Patient's abdominal pain improved. No fever no chills. Tolerating liquid diet. No complaints of chest pain or short of breath 11/01/2016 Patient states that her abdominal pain is getting better. Nauseated. No episodes of vomiting. Tolerating liquid diet. Drain tube is still draining small amount of serosanguineous fluid. No fever no chills. Otherwise no acute overnight issues. 11/02/2016 Patient's abdominal pain is much better now be at tolerating soft diet. No fever no chills. Patient's pigtail drain cath are in place upon discharge. Patient is supposed to follow with general surgery and continue with antibiotics. Patient is being discharged home today. Objective - Vital Signs Vital signs: Vital Signs Temp 98.1 F 11/02/16 07:00 Pulse 66 11/02/16 08:00 Resp 18 11/02/16 08:00 BP 156/72 11/02/16 07:00 Pulse Ox 95 11/02/16 07:00 Intake & Output 11/02/16 11/02/16 11/03/16 06:59 18:59 06:59 Intake Total 400 740 Output Total 5 Balance 395 740 Weight 89.584 kg Intake: Intake, IV Titration 100 Amount cefTRIAXone 2,000 mg In 100 Sodium Chloride 0.9% 100 ml @ 100 mls/hr IVPB Q24HR BETTY Rx#:[id number] Oral 400 640 Output: Drainage 5 Bilateral Abdomen 5 Other: Voiding Method Toilet Toilet # Voids 1 3 - Exam GENERAL: The patient is alert and oriented x3, not in any acute distress. Well developed, well nourished. HEENT: Pupils are round and equally reacting to light. EOMI. No scleral icterus. No conjunctival pallor. Normocephalic, atraumatic. No pharyngeal erythema. No thyromegaly. CARDIOVASCULAR: S1 and S2 present. No murmurs, rubs, or gallops. PULMONARY: Chest is clear to auscultation, no wheezing or crackles. ABDOMEN: Patient has a biliary drain, abdomen is distended, sluggish bowel sounds. MUSCULOSKELETAL: No joint swelling or deformity. EXTREMITIES: No cyanosis, clubbing, or pedal edema. NEUROLOGICAL: Gross neurological examination did not reveal any focal deficits. SKIN: No rashes. - Labs CBC & Chem 7: 11/02/16 07:03 11/02/16 07:03 Labs: Abnormal Lab Results - Last 24 Hours (Table) 11/02/16 11/02/16 Range/Units 07:03 07:03 WBC 14.8 H (3.8-10.6) k/uL Plt Count 479 H (150-450) k/uL Neutrophils # 11.0 H (1.3-7.7) k/uL Monocytes # 1.4 H (0-1.0) k/uL Eosinophils # 1.0 H (0-0.7) k/uL Sodium 135 L (137-145) mmol/L BUN 3 L (7-17) mg/dL Calcium 7.8 L (8.4-10.2) mg/dL Total Protein 4.9 L (6.3-8.2) g/dL Albumin 2.4 L (3.5-5.0) g/dL Assessment and Plan Plan: 1 sepsis secondary to peritonitis. Secondary to biliary leak. patient is on appropriate antibiotics ceftriaxone and metronidazole. Patient is ALLERGIC to penicillins. Patient is on IV fluids at 1 25 mL per hour. Leukocytosis improving. #2 bile leak through ductal clamp. Status post ERCP and stent placement #2 hyponatremia: Hypervolemic hyponatremia. improved with IV fluids. 3 sleep apnea patient does use CPAP machine at home which will be continued. #4 status post laparotomy and a recent cholecystectomy.: Pain management and DVT prophylaxis Plan. Patient is tolerating liquid diet and encourage ambulation. We will continue to monitor closely. Clinically improving. Currently on antibiotics IV. Change antibiotics to by mouth Ceftin and Diflucan as per ID. Continue the current management. Patient is stable to be discharged home.
== END 2016-11-02 14:12 | disposition home or self-care (01) | DRG 856 ==
LOC: EC 05:53 → 5MS5E 06:32
PROVIDERS: ADMIT Surgery; ATTEND Surgery
PROC: 0W9B00Z Drainage of Left Pleural Cavity with Drainage Device, Open Approach (ICD-10-PCS; principal; 2016-10-24 11:00)
PROC: 0W9G00Z Drainage of Peritoneal Cavity with Drainage Device, Open Approach (ICD-10-PCS; principal; 2016-10-24 11:00)
PROC: 0F788DZ Dilation of Cystic Duct with Intraluminal Device, Via Natural or Artificial Opening Endoscopic (ICD-10-PCS; 2016-10-25 09:25)
PROC: BF101ZZ Fluoroscopy of Bile Ducts using Low Osmolar Contrast (ICD-10-PCS; 2016-10-25 09:25)
DX: K68.11 Postprocedural retroperitoneal abscess (principal); A41.9 Sepsis, unspecified organism; R18.8 Other ascites; E87.1 Hypo-osmolality and hyponatremia; F32.9 Major depressive disorder, single episode, unspecified; G47.30 Sleep apnea, unspecified; K59.00 Constipation, unspecified; Z82.49 Family history of ischemic heart disease and other diseases of the circulatory system; Z83.3 Family history of diabetes mellitus; Z88.0 Allergy status to penicillin; Z88.1 Allergy status to other antibiotic agents; Z96.641 Presence of right artificial hip joint; Z98.84 Bariatric surgery status; R19.7 Diarrhea, unspecified
CPT/HCPCS: 43262; 43274; 74328; 78226; 80048; 80053; 85025; 87040; 87324; 96361; 96374; 99285

== ENCOUNTER → 2017-05-30 | Outpatient (CLI) | payer BC ==
[2017-05-30 14:15] VITALS: BP 159/66; PULSE 74; RESP 16; TEMP 97.9; BMI 32.4
--- NOTE | 2017-05-30 16:28 | P.HPBAR ---
Bariatric H&P - History & Physicial H&P Date: 05/30/17 History & Physicial: Visit/CC: Connor jung che Patient initial contact: Initial weight: 91.257 kg Initial weight in pounds: 201.19 Height: 5 ft 4 in Initial BMI: 34.5 Last weight: Current weight: 85.757 kg Current weight in pounds: 189.06 Current BMI: 32.4 [place] body weight (based on NIH guidelines): 54.431 kg Excess body weight loss: 14.9% The patient is a 61 year-old F who presents for Bariatric Assessment. Patient presents today for lab band follow. She states that she is in a good sound. She's lost 12 pounds since her last visit. She has some vague complaints of intermittent abdominal pains. She's had minimal GERD. She does not think she needs a fill today. Past Medical History Past Medical History: Sleep Apnea/CPAP/BIPAP Additional Past Medical History / Comment(s): abdominal discomfort, Hx uveitis- follows at [facility], palpitations,UTIs,uses cpap,varicose veins,hypoglycemia, arthritis,has elevated liver enzymes-stated related to methotrexate,uses cpap History of Any Multi-Drug Resistant Organisms: None Reported Past Surgical History: Adenoidectomy, Bariatric Surgery, Bladder Surgery, Section, Cholecystectomy, Hysterectomy, Joint Replacement, Orthopedic Surgery Additional Past Surgical History / Comment(s): biliary stent,lap band 2010- thinks 10ml fluid present, bilateral carpal tunnel , right hip replacement Past Anesthesia/Blood Transfusion Reactions: Previous Problems w/ Anesthesia, Family History of Problems w/ Anesthesia Additional Past Anesthesia/Blood Transfusion Reaction / Comm: takes a long time to wake up with anesthesia,mother takes a long time waking up with anesthesia. No problems with prior blood transfusion. Past Psychological History: Depression Smoking Status: Never smoker Past Alcohol Use History: None Reported Past Drug Use History: None Reported - Past Family History Mother Family Medical History: Diabetes Mellitus, Hypertension Additional Family Medical History / Comment(s): heart disease,valve replacement Father Family Medical History: Diabetes Mellitus, Liver Disease Additional Family Medical History / Comment(s): heart disease Surgical - Exam Vital Signs Temp Pulse Resp BP 97.9 F 74 16 159/66 05/30/17 14:10 05/30/17 14:10 05/30/17 14:10 05/30/17 14:10 - General well developed, no distress - Eyes PERRL - ENT normal pinna - Neck no masses - Respiratory normal expansion - Cardiovascular Rhythm: regular - Abdomen Abdomen: soft, non tender Bariatric Assessment & Plan Plan: Status post lap band surgery. Patient is a quite well. Her GERD is minimal. Her abdominal pain is vague and intermittent and will be observed. She'll follow-up in 8 weeks. The patient states that her arthritis has improved with her weight loss. Bariatric Checklist Checklist: Plan: Checklist: EGD: 1. Hiatal hernia: 2. H. Pylori: HgbA1c: Vitamin D: Smoking: Never smoker Primary care physician referral: Psychiatry clearance: Cardiology clearance: Sleep study: Diet journal: VTE risk score: VTE risk level: Rehab needs at discharge:
== END | disposition home or self-care (01) ==
LOC: BARWHC3 12:41
PROVIDERS: ATTEND Surgery
DX: Z48.815 Encounter for surgical aftercare following surgery on the digestive system (principal); Z98.84 Bariatric surgery status; K21.9 Gastro-esophageal reflux disease without esophagitis
CPT/HCPCS: 99211